=== PATIENT | female | born 1965 | race Caucasian/White ===

== ENCOUNTER 2022-10-05 11:45 | Outpatient (REF) | payer MEDICAID, SELFPAY ==
[2022-10-05 12:22] LABS: Basophils Absolute Auto 0.02 K/uL (0.00-0.30); Basophils Percent Auto 0.3 % (0.0-3.0); Eosinophils Absolute Auto 0.05 K/uL (0.00-0.50); Eosinophils Percent Auto 0.7 % (0.0-7.0); Hemoglobin* 12.2 gm/dL (12.0-16.0); Immature Granulocytes Abs Auto 0.01 K/uL (0.00-0.30); Immature Granulocytes Pct Auto 0.1 %; Mean Corpuscular HGB Conc 33 gm/dL (32-36); Mean Corpuscular Hemoglobin 34 pg (26-34); Mean Corpuscular Volume 104 fL (80-100); Monocytes Percent Auto 8.6 % (0.0-11.0); Neutrophils Percent Auto 32.3 % (42.0-72.0); Platelet Count* 187 K/uL (140-440); RDW Coefficient of Variation % 13.6 % (11.5-15.5); Red Blood Count 3.55 m/uL (4.00-5.20); White Blood Count* 7.52 K/uL (4.50-11.00)
[2022-10-05 12:23] LABS: Slide Review Reflex No
== END 2022-10-05 11:46 | disposition home or self-care (01) ==
LOC: NPINS 11:45
PROVIDERS: Visit Provider Nurse Practitioner Adult Health
DX: R53.83 Other fatigue (principal)
CPT/HCPCS: 85025

== ENCOUNTER 2022-10-22 08:13 | Outpatient (CLI) | payer MEDICAID, SELFPAY | END 2022-10-22 08:14 | disposition home or self-care (01) | LOC: AMB 10-25 06:41 | PROVIDERS: Visit Provider Internal Medicine | DX: R06.09 Other forms of dyspnea (principal); R05.9 Cough, unspecified | CPT/HCPCS: A0425; A0429 ==

== ENCOUNTER 2022-10-22 08:37 | Inpatient (IN) | payer MEDICAID, SELFPAY ==
[2022-10-22] VITALS (30 sets, daily range): BP systolic 82–130; BP diastolic 41–104; PULSE 91–111; RESP 18–31; TEMP 36.1–37.3; O2SAT 82–100; BMI 31.1
--- NOTE | 2022-10-22 09:31 | CRLHL7_ITS ---
For Patients: As a result of the Cures Act, medical imaging exams and procedure reports are released immediately into your electronic medical record. You may view this report before your referring provider. If you have questions, please contact your health care provider. INDICATION: Cough, hypoxia TECHNIQUE: Chest 1 view COMPARISON: None FINDINGS: Postop changes cervical spine extending to the upper thoracic spine. Cardiac silhouette enlarged. Retrocardiac parenchymal density. Degenerative changes of both shoulders. IMPRESSION: Retrocardiac infiltrate. Dictated by Angelito Nagel MD @ 10/22/2022 12:04:30 PM (Electronically Signed)
--- NOTE | 2022-10-22 09:37 | ED_ITS ---
HPI - General Adult General Date Seen: 10/22/22 Chief complaint: Shortness of Breath/Dyspnea Stated complaint: pneumonia Time Seen by Provider: 10/22/22 09:02 Source: family and EMS Limitations: other (baseline mental status, with superimposed confusion on patient) History of Present Illness HPI narrative: Of aspiration pneumonia in the past. Apparently she was beginning to show signs yesterday. They tried to get a chest x-ray but the patient was uncooperative/refused so no pictures were taken. This morning she was hypoxic with saturations noted to be in the 60s on room air. However there was some question about the accuracy of the measurement. Her facility called 911. She was placed on oxygen 3 L nasal cannula and he really get oxygen measurements in the 90s with a good measurement. She also seems a bit more drowsy than normal. She is having spells where she is alert and somewhat combative. At other times she seems to stare off into space. It is unclear whether or not these spells where she staring represent seizures. Subsequently patient's mother arrived. Mother reports that she does have a longstanding history of seizures since childhood. However she has not had any documented seizures for a couple of years. She is on Depakote and Keppra. As far as we know she has been receiving her meds lately. Mother noticed 1 of the spells where she seemed to be staring and hiccuping. She was able to respond to me and her mother during this spell and mother is skeptical as to whether this represents a seizure or not. It could be a partial seizure. Mother also notes that the patient has had most of her hospitalizations and medical care at the hospital in [place] over the past few years. She recently moved from [place] to [place] be closer to family but does not have md dical care here in [place] yet. Mother would, if possible, prefer the patient to be admitted at [place]. Mother is careful to confirm that the patient has advanced directives. She would not want intubation under any circumstances. She does not want CPR resuscitation. Mother would be comfortable having the patient hospitalized, treated with IV antibiotics and IV fluids. Mother is comfortable with oxygen supplementation by nasal cannula or mask. Per her written records for past medical history includes: Bronx-Gastaut syndrome Seizures Lymphedema Transverse myelitis Dysphagia Hypothyroidism spinal stenosis of cervical region history of DVT (on Eliquis) Chronic pain Obesity GERD Gout Depression Constipation Medication list: Eliquis 5 mg b.i.d. Allopurinol Bisacodyl Depakote Sprinkles 500 mg each morning Depakote Sprinkles 625 mg b.i.d. Lasix 40 mg q.a.m. Gabapentin 800 mg t.i.d. Keppra 1250 mg q.h.s. Keppra 1000 mg q.a.m. Synthroid 75 mcg Lexapro 20 mg nystatin Hydrocortisone cream Omeprazole Oxycodone 10 mg q.4 hours p.r.n. Seroquel 100 mg t.i.d. Related Data Home Medications Medication Instructions Recorded Confirmed acetaminophen 500 mg tablet 1,000 mg PO TID 10/22/22 10/22/22 allopurinol 300 mg tablet 300 mg PO DAILY 10/22/22 10/22/22 apixaban 5 mg tablet (Eliquis) 5 mg PO BID 10/22/22 10/22/22 carboxymethylcellulose sodium 0.5 1 drp ophthalmic (eye) BID-TID PRN 10/22/22 10/22/22 % eye drops (Lubricant Eye Drops) divalproex 125 mg capsule,delayed PO 10/22/22 release sprinkle divalproex 125 mg capsule,delayed 125 mg PO DAILY 10/22/22 10/22/22 release sprinkle (Depakote Sprinkles) escitalopram oxalate 20 mg tablet 20 mg PO DAILY 10/22/22 10/22/22 furosemide 40 mg tablet 40 mg PO DAILY 10/22/22 10/22/22 gabapentin 400 mg capsule 800 mg PO TID 10/22/22 10/22/22 hydrocortisone 1 % topical cream 1 applic topical BID 10/22/22 10/22/22 levetiracetam 1,000 mg tablet 1,000 mg PO BID 10/22/22 10/22/22 levetiracetam 250 mg tablet 250 mg PO DAILY 10/22/22 10/22/22 levothyroxine 75 mcg tablet 75 mcg PO DAILY 10/22/22 10/22/22 nystatin 100,000 unit/gram topical 1 applic topical 3XD 10/22/22 10/22/22 cream omeprazole 40 mg capsule,delayed 40 mg PO DAILY 10/22/22 10/22/22 release oxycodone 10 mg tablet 10 mg PO QID PRN pain 10/22/22 10/22/22 oxycodone 5 mg tablet 5 mg PO Q8H 10/22/22 10/22/22 quetiapine 100 mg tablet 100 mg PO TID 10/22/22 10/22/22 sennosides 8.6 mg tablet (senna) 17.2 mg PO HS 10/22/22 10/22/22 Allergies Allergy/AdvReac Type Severity Reaction Status Date / Time phenytoin [From Dilantin] Allergy Unknown Verified 10/22/22 09:22 pseudoephedrine Allergy Unknown Verified 10/22/22 09:22 Review of Systems Narrative: Limited [facility] Medical History (Updated 10/22/22 @ 13:22 by Nancy Hickman MD) Transverse myelitis ?G37.3 - Acute transverse myelitis in demyelinating disease of central nervous system (ICD-10) Bronx-Gastaut syndrome ?G40.812 - Horacio-Gastaut syndrome, not intractable, without status epilepticus (ICD-10) Seizure disorder ?G40.909 - Epilepsy, unspecified, not intractable, without status epilepticus (ICD-10) Congenital hypothyroidism ?E03.1 - Congenital hypothyroidism without goiter (ICD-10) 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 Alert. She is shouting at times when nurses are trying to start an IV. She follows some limited commands but is sometimes uncooperative. Breathing easily on nasal cannula.. Non toxic. HENT: Head: Atraumatic. Nose: Nose normal. Mouth/Throat: Oral mucosa is clear and moist. no trismus. Pharynx difficult to examine due to patient's limited cooperation. Visualized portions are normal.. Eyes: Conjunctivae normal. EOM normal. Pupils equal, round, and reactive to lig ht. No scleral icterus. Neck: Normal range of motion. Neck supple. No tracheal deviation present. Cardiovascular: Tachycardic, regular rhythm. No gallop. No friction rub. No murmur heard. Symmetric radial artery pulses Pulmonary/Chest: Effort normal. On nasal cannula with oxygen sat 94-95% on 3 L. No stridor. No respiratory distress. No wheezes. Questionable right basilar rales. No rhonchi . No tenderness. Abdominal: Soft. Bowel sounds normal. No distension. No mass. No tenderness. No rebound. No guarding. Musculoskeletal: RUE: Normal range of motion. No tenderness. No deformity LUE: Normal range of motion. No tenderness. No deformity RLE: Normal range of motion. Minimal edema. No tenderness. No deformity LLE: Normal range of motion. Minimal edema. No tenderness. No deformity Lymph: No cervical adenopathy. Neurological: Alert and oriented and is thought to be at her baseline per her mother. At times she has spells where she seems to stare straight ahead but does react when her mother talks to her. The spells are associated with an unusual twitching motion, almost like a subtle pickup that occurred roughly once every 2nd or 2. Between the spell she is moving all 4 extremities.Normal strength. CN II-VII intact. No sensory deficit. GCS eye subscore is 4. GCS verbal subscore is 5. GCS motor subscore is 6. Normal coordination Skin: Skin is warm and dry. No rash noted. No pallor. Normal capillary refill. Psychiatric: Limited. Const: Vital Signs, click to edit/add: Vital Signs - 24 hr 10/22/22 09:11 10/22/22 10:09 10/22/22 10:30 Temperature 97.0 F L Pulse Rate 103 H 101 H Pulse Rate [Left P ulse Oximeter] 110 H Respiratory Rate 31 H Blood Pressure Blood Pressure [Le ft Upper Arm] 96/69 Pulse Oximetry 82 L 90 97 Oxygen Delivery Me thod Room Air Oxygen Flow Rate 10/22/22 10:32 10/22/22 10:55 10/22/22 11:00 Temperature Pulse Rate 101 H 103 H 102 H Pulse Rate [Left P ulse Oximeter] Respiratory Rate Blood Pressure 82/53 L 97/58 L Blood Pressure [Le ft Upper Arm] Pulse Oximetry 95 92 95 Oxygen Delivery Me thod Oxygen Flow Rate 10/22/22 11:01 10/22/22 11:02 10/22/22 11:04 Temperature Pulse Rate 102 H 103 H Pulse Rate [Left P ulse Oximeter] Respiratory Rate Blood Pressure 105/53 L Blood Pressure [Le ft Upper Arm] Pulse Oximetry 95 93 90 Oxygen Delivery Me thod Nasal Cannula Oxygen Flow Rate 3 10/22/22 11:30 10/22/22 11:32 10/22/22 11:33 Temperature Pulse Rate 101 H 102 H 101 H Pulse Rate [Left P ulse Oximeter] Respiratory Rate Blood Pressure 102/53 L Blood Pressure [Le ft Upper Arm] Pulse Oximetry 97 94 96 Oxygen Delivery Me thod Oxygen Flow Rate 10/22/22 12:00 10/22/22 12:02 10/22/22 12:32 Temperature Pulse Rate 101 H 100 Pulse Rate [Left P ulse Oximeter] Respiratory Rate Blood Pressure 94/59 L 103/58 L Blood Pressure [Le ft Upper Arm] Pulse Oximetry 95 96 Oxygen Delivery Me thod Oxygen Flow Rate 10/22/22 12:36 10/22/22 13:00 10/22/22 13:01 Temperature Pulse Rate 104 H 102 H 102 H Pulse Rate [Left P ulse Oximeter] Respiratory Rate Blood Pressure 100/59 L Blood Pressure [Le ft Upper Arm] Pulse Oximetry 89 93 95 Oxygen Delivery Me thod Oxygen Flow Rate Course Vital Signs Vital signs: Initial Vital Signs Temperature 97.0 F L 10/22/22 09:11 Temperature Source Temporal Artery Scan 10/22/22 09:11 Pulse Rate 110 H 10/22/22 09:11 Respiratory Rate 31 H 10/22/22 09:11 Blood Pressure 96/69 10/22/22 09:11 Blood Pressure Mean 78 10/22/22 09:11 Blood Pressure Position Supine 10/22/22 09:11 Pulse Oximetry 82 L 10/22/22 09:11 Oxygen Delivery Method Room Air 10/22/22 09:11 Vital Signs Temperature 97.0 F L 10/22/22 09:11 Pulse Rate 110 H 10/22/22 09:11 Respiratory Rate 31 H 10/22/22 09:11 Blood Pressure 96/69 10/22/22 09:11 Pulse Oximetry 82 L 10/22/22 09:11 Oxygen Delivery Method Room Air 10/22/22 09:11 Temperature 97.0 F L 10/22/22 09:11 Pulse Rate 102 H 10/22/22 13:01 Respiratory Rate 31 H 10/22/22 09:11 Blood Pressure 100/59 L 10/22/22 13:01 Pulse Oximetry 95 10/22/22 13:01 Oxygen Delivery Method Nasal Cannula 10/22/22 11:04 Oxygen Flow Rate 3 10/22/22 11:04 Medical Decision Making MDM Narrative Medical decision making narrative: 57-year-old female who presents to the ER today with concern for hypoxia, difficulty breathing, with a history of aspiration pneumonias in the past. She also has unusual mental status and unusual behaviors, possible hiccups versus possible partial seizures ongoing for the past couple of days. 1. Neuro. No recent known fall or head injury. No external signs of head trauma. Patient is essentially a neurologic baseline according to her mother although at times does have unusual possible seizure-like activity versus behavioral. She does have a chronic seizure disorder and is normally managed on gabapentin, Keppra, Depakote. As far as we know she has been receiving her meds and normally. Depakote and Keppra levels are currently ordered and pending. Additional dose of IV Keppra and monitor her here in the ER to account for this morning's dose. And discussion with the patient's mother, we discussed that transfer to a hospital or neurology consultation and potential EEG monitoring may be indicated. However there are no beds available at [place] or in the [facility]. Mother really does not want the patient to be transferred to the [facility]. In fact, with the patient's advanced directives, mother would prefer to admit here and/or transfer to [place], but not to her level of care. Therefore she will be admitted to the ICU for monitoring here in the ER with plan to monitor. Blood sugar normal. Sodium normal. 2. Pulmonary. Chest x-ray does show a left retrocardiac infiltrate which would correlate with possible history of aspiration. She was hypoxic prior to arrival but is now stable on 3 L nasal cannula. Blood gas shows a chronic pCO2 elevated at 67 but normal pH suggesting no acute CO2 retention. She does not have any wheezing or bronchospasm on my exam suggest COPD. At this point I do not think she needs BiPAP. Mother confirms that she has DNI but would will be accepting for oxygen supplementation in the hospital. IV antibiotics initiated to cover for possible aspiration pneumonia. COVID, influenza, RSV PCR negative. She has recently been on Eliquis for history of DVT/PE. With a clear explanation for her hypoxia-left lower lobe pneumonia, would hold off on CT PA at this time. He 3. Id. Patient does have pneumonia. She does have leukocytosis. Concern is for possible sepsis from her aspiration pneumonia. She did have an isolated low blood pressure reading recorded here in the ER during her initial stabilization. Unclear whether this is accurate because the patient was uncooperative and blood pressure cuff was not always staying on. Of note there was significant delay while we were trying to establish IV to initiate IV antibiotics and IV fluids. Ultimately although white count elevated, blood pressure is stabilized to normal level. Lactic acid is reassuring and normal. Urine negative. No signs of skin or soft tissue infection. No abdominal tenderness to suggest intra-abdominal infection. Mental status exam is limited by her baseline mental status but mother believes she is approximately at her baseline. Low likelihood for meningitis. Will hold off on lumbar puncture. 4. Goals of care. Mother is careful to state multiple times that she does not want any mistakes about advanced directives.. She does no want are clear Whit to be intubated or have CPR. She would want supportive care. Lab Data Lab results reviewed: Yes I reviewed the patient's lab results Labs: Lab Results 10/22/22 10/22/22 10/22/22 Range/Units 10:15 11:04 12:25 WBC 13.53 H (4.50-11.00) K/uL RBC 3.25 L (4.00-5.20) m/uL Hgb 11.0 L (12.0-16.0) gm/dL Hct 35.2 (33.0-51.0) % MCV 108 H (80-100) fL MCH 34 (26-34) pg MCHC 31 L (32-36) gm/dL RDW Coeff of Mike 13.2 (11.5-15.5) % Plt Count 146 (140-440) K/uL Neut % (Auto) 76.1 H (42.0-72.0) % Lymph % (Auto) 15.6 L (20-44) % [place] % (Auto) 7.8 (0.0-11.0) % Eos % (Auto) 0.1 (0.0-7.0) % Baso % (Auto) 0.1 (0.0-3.0) % Neut # (Auto) 10.30 H (1.7-7.0) K/uL Lymph # (Auto) 2.10 (0.90-2.90) K/uL [place] # (Auto) 1.10 H (0.00-0.90) K/UL Eos # (Auto) 0.00 (0.00-0.50) K/uL Baso # (Auto) 0.00 (0.00-0.30) K/uL Abs Immat Gran (auto) 0.00 (0.00-0.30) K/uL Imm/Tot Granulo (auto) 0.3 % VBG pH 7.406 (7.32-7.43) VBG pCO2 67 H* (40-50) mmHG VBG pO2 36.0 (25-47) mmHG VBG HCO3 42 H (21-28) mmol/L Sodium 136 (135-149) mmol/L Potassium 4.2 (3.6-5.1) mmol/L Chloride 95 L (96-114) mmol/L Carbon Dioxide 39 H (20-32) mmol/L BUN 14 (7-30) mg/dL Creatinine 0.5 (0.5-1.5) mg/dL Estimated Creat Clear 95.82 Estimated GFR 108 ml/min Glucose 95 (60-115) mg/dL Lactate 1.3 (0.5-1.9) mmol/L Calcium 8.6 (8.4-10.6) mg/dL Total Bilirubin 0.3 (0.1-1.5) mg/dL Direct Bilirubin 0.1 (0.0-0.5) mg/dL AST 31 (12-35) U/L ALT 12 (4-35) U/L Alkaline Phosphatase 53 (40-150) U/L Troponin I 0.02 (0.01-0.04) ng/mL C-Reactive Protein 13.8 H (0.5-1.0) mg/dL Total Protein 6.7 (6.0-8.3) g/dL Albumin 3.4 (3.3-5.0) g/dL Procalcitonin 0.23 (<0.50) ng/mL Urine Color Yellow (Yellow) Urine Appearance Clear (Clear) Urine pH 7.5 (5.0-8.5) Ur Specific [place] 1.015 (1.000-1.030) Urine Protein Negative (Negative) Urine Glucose (UA) Negative (Negative) Urine Ketones Negative (Negative) Urine Blood Negative (Negative) Urine Nitrite Negative (Negative) Urine Bilirubin Negative (Negative) Urine Urobilinogen 0.2 (0.2-1.0) Ur Leukocyte Esterase Negative (Negative) Urine RBC 0-2 (0-2) Urine WBC 0-2 (0-5) Ur Squamous Epith Cells None (None-Few) Urine Bacteria None (None) SARS-CoV-2 (PCR) Negative SARS-CoV-2 (Negative) Influenza Type A (PCR) Negative PCR FLU A (Negative) Influenza Type B (PCR) Negative PCR FLU B (Negative) RSV (PCR) Negative PCR RSV (Negative) Lab Acknowledgement 10/22/22 Range/Units 12:40 WBC (4.50-11.00) K/uL RBC (4.00-5.20) m/uL Hgb (12.0-16.0) gm/dL Hct (33.0-51.0) % MCV (80-100) fL MCH (26-34) pg MCHC (32-36) gm/dL RDW Coeff of Mike (11.5-15.5) % Plt Count (140-440) K/uL Neut % (Auto) (42.0-72.0) % Lymph % (Auto) (20-44) % [place] % (Auto) (0.0-11.0) % Eos % (Auto) (0.0-7.0) % Baso % (Auto) (0.0-3.0) % Neut # (Auto) (1.7-7.0) K/uL Lymph # (Auto) (0.90-2.90) K/uL [place] # (Auto) (0.00-0.90) K/UL Eos # (Auto) (0.00-0.50) K/uL Baso # (Auto) (0.00-0.30) K/uL Abs Immat Gran (auto) (0.00-0.30) K/uL Imm/Tot Granulo (auto) % VBG pH (7.32-7.43) VBG pCO2 (40-50) mmHG VBG pO2 (25-47) mmHG VBG HCO3 (21-28) mmol/L Sodium (135-149) mmol/L Potassium (3.6-5.1) mmol/L Chloride (96-114) mmol/L Carbon Dioxide (20-32) mmol/L BUN (7-30) mg/dL Creatinine (0.5-1.5) mg/dL Estimated Creat Clear Estimated GFR ml/min Glucose (60-115) mg/dL Lactate (0.5-1.9) mmol/L Calcium (8.4-10.6) mg/dL Total Bilirubin (0.1-1.5) mg/dL Direct Bilirubin (0.0-0.5) mg/dL AST (12-35) U/L ALT (4-35) U/L Alkaline Phosphatase (40-150) U/L Troponin I (0.01-0.04) ng/mL C-Reactive Protein (0.5-1.0) mg/dL Total Protein (6.0-8.3) g/dL Albumin (3.3-5.0) g/dL Procalcitonin (<0.50) ng/mL Urine Color (Yellow) Urine Appearance (Clear) Urine pH (5.0-8.5) Ur Specific [place] (1.000-1.030) Urine Protein (Negative) Urine Glucose (UA) (Negative) Urine Ketones (Negative) Urine Blood (Negative) Urine Nitrite (Negative) Urine Bilirubin (Negative) Urine Urobilinogen (0.2-1.0) Ur Leukocyte Esterase (Negative) Urine RBC (0-2) Urine WBC (0-5) Ur Squamous Epith Cells (None-Few) Urine Bacteria (None) SARS-CoV-2 (PCR) (Negative) Influenza Type A (PCR) (Negative) Influenza Type B (PCR) (Negative) RSV (PCR) (Negative) Lab Acknowledgement Test Added Imaging Data Chest x-ray: Attestation: I have reviewed the pertinent imaging results. Radiologist's impression: IMPRESSION: Retrocardiac infiltrate. ECG Data Attestation: I personally reviewed and interpreted this ECG as follows: Interpretation: EKG 11:53 a.m. Normal sinus rhythm 100 beats per minute [place] interval 162 QRS axis normal. No pathologic Q-waves. ST segment/T-wave: Nonspecific flattening V1, V2, V5, V6. No ST segment el evation or depression. QTC 399 Discharge Plan Discharge Clinical Impression: Acute alteration in mental status, Community acquired pneumonia Patient Disposition: Admitted As Observation
--- NOTE | 2022-10-22 10:24 | ED.NURSE ---
started #22 jelco as a saline lock in the left hand. able to draw the labs with present in the room. patient pulls at things so wrapped with kerlex. Mother is present in the room.
[2022-10-22 10:32] LABS: Basophils Percent Auto 0.1 % (0.0-3.0); Eosinophils Percent Auto 0.1 % (0.0-7.0); Hematocrit 35.2 % (33.0-51.0); Immature Granulocytes Pct Auto 0.3 %; Lymphocytes Percent Auto 15.6 % (20-44); Mean Corpuscular HGB Conc 31 gm/dL (32-36); Mean Corpuscular Hemoglobin 34 pg (26-34); Mean Corpuscular Volume 108 fL (80-100); Monocytes Percent Auto 7.8 % (0.0-11.0); Neutrophils Percent Auto 76.1 % (42.0-72.0); Platelet Count* 146 K/uL (140-440); RDW Coefficient of Variation % 13.2 % (11.5-15.5); Red Blood Count 3.25 m/uL (4.00-5.20); White Blood Count* 13.53 K/uL (4.50-11.00)
[2022-10-22 10:35] LABS: Lactate* 1.3 mmol/L (0.5-1.9)
[2022-10-22] MEDS: 0.9 % SODIUM CHLORIDE 1000 ml 1,000 ML IV ×3 (10:36→15:32)
[2022-10-22 10:37] LABS: Slide Review Reflex No
[2022-10-22] MEDS: PIPERACILLIN/TAZOBACTAM 4.5 GM in 0.9 % SODIUM CHLORIDE Mini-bag 100 ML IVPB (10:43)
[2022-10-22 10:52] LABS: Chloride* 95 mmol/L (96-114); Potassium* 4.2 mmol/L (3.6-5.1); Sodium* 136 mmol/L (135-149)
[2022-10-22 10:55] LABS: Blood Urea Nitrogen* 14 mg/dL (7-30); Carbon Dioxide* 39 mmol/L (20-32); Creatinine* 0.5 mg/dL (0.5-1.5); Est. Creatinine Clearance* 95.82; Estimated Glomerular Filt Rate 108 ml/min; Glucose* 95 mg/dL (60-115)
[2022-10-22 10:56] LABS: Calcium* 8.6 mg/dL (8.4-10.6)
[2022-10-22 11:16] LABS: Troponin I* 0.02 ng/mL (0.01-0.04)
[2022-10-22 11:48] LABS: PCR FLU A Negative PCR FLU A (Negative); PCR FLU B Negative PCR FLU B (Negative); PCR RSV Negative PCR RSV (Negative)
[2022-10-22 11:52] LABS: SARS PCR* Negative SARS-CoV-2 (Negative)
[2022-10-22 12:37] LABS: Appearance Urine Clear (Clear); Bilirubin Urine Negative (Negative); Blood Urine Negative (Negative); Color Urine Yellow (Yellow); Glucose Urine Negative (Negative); Ketones Urine Negative (Negative); Leukocyte Esterase Urine Negative (Negative); Nitrite Urine Negative (Negative); Protein Urine Negative (Negative); Specific Gravity Urine 1.015 (1.000-1.030); Urobilinogen Urine 0.2 (0.2-1.0); pH Urine 7.5 (5.0-8.5)
[2022-10-22 12:50] LABS: HCO3 VBG 42 mmol/L (21-28); pH VBG 7.406 (7.32-7.43)
[2022-10-22 12:51] LABS: PCO2 VBG 67 mmHG (40-50)
[2022-10-22 12:56] LABS: Albumin* 3.4 g/dL (3.3-5.0)
[2022-10-22 12:59] LABS: Bilirubin Direct* 0.1 mg/dL (0.0-0.5); Bilirubin Total* 0.3 mg/dL (0.1-1.5)
[2022-10-22 13:00] LABS: Alanine Aminotransferase* 12 U/L (4-35); Alkaline Phosphatase* 53 U/L (40-150); Aspartate Amino Transferase* 31 U/L (12-35); Total Protein* 6.7 g/dL (6.0-8.3)
[2022-10-22 13:05] LABS: RBC Urine 0-2 (0-2); WBC Urine 0-2 (0-5)
--- NOTE | 2022-10-22 13:12 | P.IMHP_ITS ---
Hospitalist- H&P: HPI History of Present Illness Date Seen: 10/23/22 Chief complaint: pneumonia Narrative: ADMISSION HISTORY AND PHYSICAL - HOSPITALIST Chief Complaint: Lethargic, hiccup like seizures? , pneumonia, hypoxic HPI: 57-year-old longstanding developmental delay presents to our ER from her senior living. Her senior livingdirector of home care hospice noted hypoxia and altered mental status and called EMS. She has been sick for a few days; coughing/eating less. She has been less interactive. She is having some jerking movements this am and mom was concerned it could be a partial seizure. She was, by report, hypoxic this am. She has got her scheduled meds up thru last night. . In our ER she was noted to be hypotensive, tachycardic, tachypneic and requiring oxygen at 3 L to keep her sats above 90%. She has a chronic dysphagia that requires thickened and pureed meals. She has a history of aspiration pneumonia. Rads read her single-view chest x-ray as a retrocardiac infiltrate. She was started on Zosyn, vancomycin ER COURSE: Fluids, IV antibiotics on nasal cannula O2 CODE STATUS: DNR/DNI EMERGENCY CONTACT PLAN: Her mother, Joann I've updated the PFSH, medications and allergies in the [facility] tabs. INVESTIGATIONS: LABS/MICRO/ECG/IMAGING White count 13.5, 76% neutrophils Hemoglobin 11.0 Platelet count 146 PH 7.4, CO2 67, bicarb 42 Normal sodium, normal potassium. Normal renal function. Normal glucose. Carbon dioxide 39. Lactate 1.3 LFTs within normal limits Pending CRP and procalcitonin Pending valproic acid and Keppra levels Negative quad respiratory screen One-view chest in the ED Postop changes cervical spine extending to the upper thoracic spine. Cardiac silhouette enlarged. Retrocardiac parenchymal density. Degenerative changes of both shoulders. IMPRESSION: Retrocardiac infiltrate. One blood culture pending EKG shows normal sinus rhythm with a nonspecific T-wave abnormality. Heart rate 100. REVIEW OF SYSTEMS: 12-point ROS completed with patient and negative unless otherwise stated in HPI or below. PHYSICAL EXAM: CODE STATUS: DNR/DNI. Mother, Joann, is her guardian. Is very clear regarding her care goals for her daughter Whit. There will be no heroic efforts. Antibiotics, fluids, adjustment medications as necessary are okay. CONSTITUTIONAL: Agitated. Is one-word sentences. Cries out with nursing interventions. VITAL SIGNS: see record. HEENT: Normocephalic, atraumatic. PERRL, EOMI, conjunctivae pink, no scleral icterus. Ears and nose externally normal. Pharynx normal. NECK: No JVD. No carotid bruit, no thyromegaly, no adenopathy. CHEST: No wheezing. HEART: S1 and S2 normal. No harsh murmurs. Edema MUSCULOSKELETAL: No gross joint deformity or swelling. NEURO: Cranial nerves intact. Grossly intact. No asymmetric findings. SKIN: No rashes, petechiae, concerning changes PSYCHIATRIC: Agitated. 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, not intractable, without status epilepticus (ICD-10) Seizure disorder ?G40.909 - Epilepsy, unspecified, not intractable, without status epilepticus (ICD-10) Congenital hypothyroidism ?E03.1 - Congenital hypothyroidism without goiter (ICD-10) Developmental delay with autism spectrum disorder and gait instability ?R62.50 - Unspecified lack of expected normal physiological development in childhood (ICD-10) ?F84.0 - Autistic disorder (ICD-10) ?R26.81 - Unsteadiness on feet (ICD-10) Surgical History (Updated 10/22/22 @ 14:42 by Nancy Hickman MD) Status post tracheostomy ?Z93.0 - Tracheostomy status (ICD-10) H/O spinal fusion ?Z98.1 - Arthrodesis status (ICD-10) Social History (Updated 10/22/22 @ 14:28 by Nancy Hickman MD) Narrative: Has lived in group homes since graduation from high school. Mother Joann, is very involved. Currently she lives at [facility]. Recently had lived at the [facility]. No smoking. Not sexually active. No alcohol. Loves Kahlil and all cartoons. What is your current living situation?: I presently have a place to live Problems where you live: unable to answer Problems where you live details: n/a In the past 12 months, utilities in danger of being shut off: unable to answer In the past 12 mos, have been you worried that your food would run out before you had money to buy more?: unable to answer In the past 12 mos, the food you bought just didn't last and you didn't have money to buy more?: unable to answer Highest level of school completed/degree received: high school graduate Smoking Status: Never smoker How often do you have a drink containing alcohol: never AUDIT-C Alcohol total score: 0 Non-prescribed substance use: denies use Caffeine: No How often does anyone, including family, friends and others, physically hurt you : unable to answer How often does anyone, including family, friends and others, insult or talk down to you: unable to answer How often does anyone, including family, friends and others, threaten you with harm: unable to answer How often does anyone, including family, friends and others, scream or curse at you: unable to answer Do you think of yourself as: don't know Gender Identity: female service: No Meds Home Medications and Allergies Home Medications Medication Instructions Recorded Confirmed Type acetaminophen 500 mg tablet 1,000 mg PO TID 10/22/22 10/22/22 History allopurinol 300 mg tablet 300 mg PO DAILY 10/22/22 10/22/22 History apixaban 5 mg tablet (Eliquis) 5 mg PO BID 10/22/22 10/22/22 History bisacodyl 10 mg rectal suppository 10 mg LA BID PRN 10/22/22 10/22/22 History carboxymethylcellulose sodium 0.5 1 drp ophthalmic (eye) TID 10/22/22 10/22/22 History % eye drops (Lubricant Eye Drops) divalproex 125 mg capsule,delayed 500 - 625 mg PO TID 10/22/22 10/22/22 History release sprinkle escitalopram oxalate 20 mg tablet 20 mg PO DAILY 10/22/22 10/22/22 History furosemide 40 mg tablet 40 mg PO DAILY 10/22/22 10/22/22 History gabapentin 400 mg capsule 800 mg PO TID 10/22/22 10/22/22 History hydrocortisone 1 % topical cream 1 applic topical BID PRN 10/22/22 10/22/22 History levetiracetam 1,000 mg tablet 1,000 mg PO BID 10/22/22 10/22/22 History levetiracetam 250 mg tablet 250 mg PO HS 10/22/22 10/22/22 History levothyroxine 75 mcg tablet 75 mcg PO DAILY 10/22/22 10/22/22 History nystatin 100,000 unit/gram topical 1 applic topical BID 10/22/22 10/22/22 History cream omeprazole 40 mg capsule,delayed 40 mg PO DAILY 10/22/22 10/22/22 History release oxycodone 10 mg tablet 10 mg PO TID pain 10/22/22 10/22/22 History quetiapine 100 mg tablet 100 mg PO TID 10/22/22 10/22/22 History sennosides 8.6 mg tablet (senna) 8.6 - 17.2 mg PO BID 10/22/22 10/22/22 History Allergies Allergy/AdvReac Type Severity Reaction Status Date / Time phenytoin [From Dilantin] Allergy Unknown Verified 10/22/22 09:22 pseudoephedrine Allergy Unknown Verified 10/22/22 09:22 Exam Const: Vital Signs, click to edit/add: Vital Signs - 24 hr 10/22/22 09:11 10/22/22 10:09 10/22/22 10:30 Temperature 97.0 F L Pulse Rate 103 H 101 H Pulse Rate [Left P ulse Oximeter] 110 H Respiratory Rate 31 H Blood Pressure Blood Pressure [Le ft Upper Arm] 96/69 Pulse Oximetry 82 L 90 97 Oxygen Delivery Me thod Room Air Oxygen Flow Rate 10/22/22 10:32 10/22/22 10:55 10/22/22 11:00 Temperature Pulse Rate 101 H 103 H 102 H Pulse Rate [Left P ulse Oximeter] Respiratory Rate Blood Pressure 82/53 L 97/58 L Blood Pressure [Le ft Upper Arm] Pulse Oximetry 95 92 95 Oxygen Delivery Me thod Oxygen Flow Rate 10/22/22 11:01 10/22/22 11:02 10/22/22 11:04 Temperature Pulse Rate 102 H 103 H Pulse Rate [Left P ulse Oximeter] Respiratory Rate Blood Pressure 105/53 L Blood Pressure [Le ft Upper Arm] Pulse Oximetry 95 93 90 Oxygen Delivery Me thod Nasal Cannula Oxygen Flow Rate 3 10/22/22 11:30 10/22/22 11:32 10/22/22 11:33 Temperature Pulse Rate 101 H 102 H 101 H Pulse Rate [Left P ulse Oximeter] Respiratory Rate Blood Pressure 102/53 L Blood Pressure [Le ft Upper Arm] Pulse Oximetry 97 94 96 Oxygen Delivery Me thod Oxygen Flow Rate 10/22/22 12:00 10/22/22 12:02 10/22/22 12:32 Temperature Pulse Rate 101 H 100 Pulse Rate [Left P ulse Oximeter] Respiratory Rate Blood Pressure 94/59 L 103/58 L Blood Pressure [Le ft Upper Arm] Pulse Oximetry 95 96 Oxygen Delivery Me thod Oxygen Flow Rate 10/22/22 12:36 Temperature Pulse Rate 104 H Pulse Rate [Left P ulse Oximeter] Respiratory Rate Blood Pressure Blood Pressure [Le ft Upper Arm] Pulse Oximetry 89 Oxygen Delivery Me thod Oxygen Flow Rate Hospitalist - H&P: Result Labs Labs: Short CBC 10/22/22 Range/Units 10:15 WBC 13.53 H (4.50-11.00) K/uL Hgb 11.0 L (12.0-16.0) gm/dL Hct 35.2 (33.0-51.0) % Plt Count 146 (140-440) K/uL BMP 10/22/22 10:15 Sodium 136 Potassium 4.2 Chloride 95 L Carbon Dioxide 39 H BUN 14 Creatinine 0.5 Glucose 95 Calcium 8.6 Cardiac Enzymes 10/22/22 Range/Units 10:15 Troponin I 0.02 (0.01-0.04) ng/mL Liver Function 10/22/22 Range/Units 10:15 Total Bilirubin 0.3 (0.1-1.5) mg/dL Direct Bilirubin 0.1 (0.0-0.5) mg/dL AST 31 (12-35) U/L ALT 12 (4-35) U/L Alkaline Phosphatase 53 (40-150) U/L Albumin 3.4 (3.3-5.0) g/dL Urine 10/22/22 Range/Units 12:25 Urine Color Yellow (Yellow) Urine Appearance Clear (Clear) Urine pH 7.5 (5.0-8.5) Ur Specific [place]comb 1.015 (1.000-1.030) Urine Protein Negative (Negative) Urine Glucose (UA) Negative (Negative) Assessment and Plan Assessment and plan (1) Acute respiratory failure with hypoxia and hypercapnia: Problem comment: From aspiration pneumonia most likely. Zosyn and vancomycin in the emergency room. I will continue Zosyn and start azithromycin. I have not ordered steroids at this point. Good pulmonary hygiene, oxygen to support and fluid resuscitation all in progress. Blood gas 7.406. PCO2 67, elevated. Bicarb 42. CRP is 13.8. Procalcitonin is 0.23. Status: Acute (2) Aspiration pneumonia: Problem comment: Hypercapnic, hypoxic. Retrocardiac infiltrate. Will follow clinical response to therapies and markers/imaging. Status: Acute (3) Hypercarbia: Problem comment: will not tolerate bipap; on high flow Status: Acute (4) Seizure disorder: Problem comment: Continue dosing with her home regimen - on/off able to cooperate with PO meds. keppra and valproic acid IV if needed. Status: Acute (5) Fluid overload, unspecified: Status: Acute (6) Acute alteration in mental status: Problem comment: Likely related to underlying comorbidities and hypoxia and sepsis Status: Acute (7) Developmental delay with autism spectrum disorder and gait instability: Problem comment: Noted Status: Acute (8) Horacio-Gastaut syndrome: Problem comment: Noted. Potentially having seizures, absent. We gave the Keppra IV in the ED. I have ordered her Depakote and Keppra per usual dosing regimen. May need bedside neurology with [place] if we feel she is still having seizures later today. Status: Acute (9) Congenital hypothyroidism: Problem comment: Continu dosing with her Synthroid regimen. Status: Acute (10) Chronic pain: Problem comment: Patient takes 10 mg of oxycodone t.i.d. with p.r.n. 5 mg dosing. The mother was telling me that she has done better when on transdermal fentanyl and she was in discussions with this with the new [facility] provider. As she aspirated, likely, this time I will place the fentanyl Duragesic. Status: Acute (11) Opioid dependence: Problem comment: Chronic oxycodone dosing. Both scheduled and p.r.n.. I am holding the scheduled dosing as were starting a fentanyl Duragesic. Status: Acute (12) Cervical radiculopathy due to degenerative joint disease of spine: Problem comment: Source of her chronic pain. She had a large fusion of her cervical spine in 2018. Status: Acute (13) Morbid obesity: Status: Acute
[2022-10-22 13:17] LABS: C Reactive Protein* 13.8 mg/dL (0.5-1.0); Procalcitonin* 0.23 ng/mL (<0.50)
[2022-10-22] MEDS: 0.9 % SODIUM CHLORIDE 1000 ml 1,000 ML 250 ML IV (15:30)
[2022-10-22] MEDS: ACETAMINOPHEN 500 MG TABLET 1000 MG PO ×2 (16:30→21:36)
[2022-10-22] MEDS: PANTOPRAZOLE SODIUM 40 MG INJ IVP (16:30)
[2022-10-22] MEDS: GABAPENTIN 100 MG CAPSULE 200 MG PO (16:31)
[2022-10-22] MEDS: GABAPENTIN 600 MG TABLET PO (16:31)
[2022-10-22] MEDS: fentaNYL 25 MCG/HR PATCH 1 PATCH TRANSDERMA (16:31)
[2022-10-22] MEDS: DIVALPROEX SODIUM 125 MG CAP.DR.SPR 625 MG PO ×2 (16:32→21:33)
[2022-10-22] MEDS: AZITHROMYCIN 500 MG in 0.9 % SODIUM CHLORIDE 250 ml 250 ML 255 MG IVPB (16:32)
[2022-10-22] MEDS: QUETIAPINE 100 MG TABLET PO ×2 (16:33→21:35)
[2022-10-22] MEDS: IPRAT-ALBUT 0.5-2.5 MG/3 ML NEB 1 NEB IH ×2 (16:56→21:34)
--- NOTE | 2022-10-22 18:27 | PC.NURSE ---
End of shift-- Pt is pleasant and primarily cooperative. Oriented to person, birthday, age and day of week but was unsure of her location or the year. Pt has a baseline developmental delay and her speech is limited and occasionally incoherent. Pt yells to communicate as per her baseline. VSS, though tachycardic with HR in 110s and highest temp this shift is 99.1F. SpO2 maintained >90% on 1-2L per n.c. Crackles auscultated in bilateral bases of lungs, though pt was unable to cooperate fully with assessment. Moist, non-productive cough noted. BS+ x4 quadrants and she ate roughly 25% of lunch and dinner. Pt has a pureed diet with honey thick liquids and requires adaptive equipment in order to feed herself. She was assisted to eat this evening. Telemetry shows sinus tachycardia. Pt was incontinent of urine once this shift and turned and repositioned every 2 hours. 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 Mild redness and irritation beneath breasts. Skin otherwise intact. Mother was at bedside this afternoon and appears loving and supportive. Report to oncoming shift.
[2022-10-22] MEDS: 5 % DEX/0.9 SOD CHL+KCL 20 mEq 1,000 ML 125 ML IV (20:46)
[2022-10-22] MEDS: levETIRAcetam 500 MG TABLET 1250 MG PO (21:35)
[2022-10-22] MEDS: OXYCODONE 5 MG TABLET PO (21:35)
[2022-10-22] MEDS: SENNOSIDES 1 TAB TABLET 2 TAB PO (21:36)
[2022-10-22] MEDS: GABAPENTIN 100 MG CAPSULE 800 MG PO (21:37)
[2022-10-22] MEDS: APIXABAN 5 MG TABLET PO (21:37)
[2022-10-22] MEDS: NYSTATIN CREAM 30 GM 1 APPLIC TOPICAL (21:48)
[2022-10-22] MEDS: HYDROCORTISONE 1 % CREAM 1 APPLIC TOPICAL (21:48)
--- NOTE | 2022-10-22 21:54 | PC.NURSE ---
Patient's gabapentin changed from one 600mg tablet + 2 100mg capsules to 8 100 mg capsules as patient cannot swallow pills and tablet can not be crushed. Okayed with MD/remote pharmacy.
[2022-10-23] VITALS (28 sets, daily range): BP systolic 81–146; BP diastolic 50–95; PULSE 82–101; RESP 16–20; TEMP 35.9–36.6; O2SAT 2–100; BMI 35.6
[2022-10-23] MEDS: OXYCODONE 5 MG TABLET PO ×3 (04:12→20:06)
[2022-10-23] MEDS: 5 % DEX/0.9 SOD CHL+KCL 20 mEq 1,000 ML 125 ML IV ×2 (04:16→19:54)
[2022-10-23] MEDS: IPRAT-ALBUT 0.5-2.5 MG/3 ML NEB 1 NEB IH ×4 (04:16→20:37)
[2022-10-23 06:21] LABS: HCO3 VBG 36 mmol/L (21-28); Ionized Calcium* 1.18 mmol/L (1.11-1.30); PO2 VBG 87.1 mmHG (25-47)
[2022-10-23 06:25] LABS: PCO2 VBG 73 mmHG (40-50)
[2022-10-23 06:29] LABS: Basophils Percent Auto 0.1 % (0.0-3.0); Eosinophils Percent Auto 0.3 % (0.0-7.0); Hematocrit 30.5 % (33.0-51.0); Hemoglobin* 9.5 gm/dL (12.0-16.0); Immature Granulocytes Pct Auto 0.2 %; Lymphocytes Percent Auto 36.1 % (20-44); Mean Corpuscular HGB Conc 31 gm/dL (32-36); Mean Corpuscular Hemoglobin 35 pg (26-34); Mean Corpuscular Volume 111 fL (80-100); Monocytes Percent Auto 6.2 % (0.0-11.0); Neutrophils Absolute Auto 6.14 K/uL (1.7-7.0); Neutrophils Percent Auto 57.1 % (42.0-72.0); Platelet Count* 142 K/uL (140-440); RDW Coefficient of Variation % 13.4 % (11.5-15.5); Red Blood Count 2.75 m/uL (4.00-5.20); White Blood Count* 10.75 K/uL (4.50-11.00)
[2022-10-23 06:30] LABS: Basophils Absolute Auto 0.01 K/uL (0.00-0.30); Eosinophils Absolute Auto 0.03 K/uL (0.00-0.50); Immature Granulocytes Abs Auto 0.02 K/uL (0.00-0.30); Lymphocytes Absolute Auto 3.88 K/uL (0.90-2.90)
[2022-10-23 06:31] LABS: Slide Review Reflex No
--- NOTE | 2022-10-23 06:39 | P.CCN_ITS ---
Assessment and Plan Assessment and plan (1) Hypercarbia: Status: Acute Plan Wilian Urrutia Hospitalist Cross Cover Note eHospitalist was contacted by nursing staff with concern of elevated pCO2. Notified by RN of elevated pCO2, today = 73, yesterday = 67. Patient also has associated mild acidosis, pH 7.3. BMP is pending. Would recommend utilization of BiPAP for improved ventilation. Order placed. Thank you for including Wilian Urrutia [facility] in this patient's care. This service is available for further assistance as requested by your care team by calling [phone]. Dictation Comment: This document was transcribed utilizing [id number] ([employer] software). Occasional mistranslation may occur.
[2022-10-23 06:41] LABS: Chloride* 104 mmol/L (96-114)
[2022-10-23 06:42] LABS: Albumin* 2.8 g/dL (3.3-5.0); Sodium* 140 mmol/L (135-149)
[2022-10-23 06:45] LABS: Alkaline Phosphatase* 47 U/L (40-150); Aspartate Amino Transferase* 17 U/L (12-35); Bilirubin Total* 0.2 mg/dL (0.1-1.5); Blood Urea Nitrogen* 10 mg/dL (7-30); Carbon Dioxide* 38 mmol/L (20-32); Creatinine* 0.5 mg/dL (0.5-1.5); Est. Creatinine Clearance* 95.82; Estimated Glomerular Filt Rate 108 ml/min; Lipase* 29 U/L (23-300); Total Protein* 5.8 g/dL (6.0-8.3)
[2022-10-23 06:46] LABS: Alanine Aminotransferase* 9 U/L (4-35); Calcium* 7.9 mg/dL (8.4-10.6); Glucose* 105 mg/dL (60-115); Magnesium* 1.9 mg/dL (1.5-2.6)
[2022-10-23 07:02] LABS: Procalcitonin* 0.19 ng/mL (<0.50)
[2022-10-23 07:05] LABS: C Reactive Protein* 16.7 mg/dL (0.5-1.0); NT Pro B Type NatriureticPept* 1200 pg/mL
--- NOTE | 2022-10-23 07:24 | PC.NURSE ---
Shift note: O2 sats 88-92% on 1-1.5L NC. Low urine output, bladder scan shown <150ml. Pt is afebrile, c/o pain ow and ouch she is able to point location of pain. RN treated per eMAR with relief per visual appearance of pt.
--- NOTE | 2022-10-23 07:30 | CRLHL7_ITS ---
For Patients: As a result of the Century Cures Act, medical imaging exams and procedure reports are released immediately into your electronic medical record. You may view this report before your referring provider. If you have questions, please contact your health care provider. INDICATION: Follow-up infiltrate TECHNIQUE: Chest 1 view COMPARISON: 10/22/2022 FINDINGS: Cardiac silhouette enlarged. Spinal fusion. Low lung volumes. Retrocardiac density. Fullness of the interstitium bilaterally. IMPRESSION: Retrocardiac atelectasis or infiltrate. Fullness of the interstitial markings suggesting fluid overload. Dictated by Angelito Nagel MD @ 10/23/2022 8:42:49 AM (Electronically Signed)
[2022-10-23] MEDS: 0.9 % SODIUM CHLORIDE 1000 ml 1,000 ML 6000 ML IV (07:45)
[2022-10-23] MEDS: DIVALPROEX SODIUM 125 MG CAP.DR.SPR 500 MG PO (08:55)
[2022-10-23] MEDS: PIPERACILLIN/TAZOBACTAM 3.375 GM in 0.9 % SODIUM CHLORIDE Mini-bag 100 ML IVPB ×3 (08:55→20:05)
[2022-10-23] MEDS: levETIRAcetam 500 MG TABLET 1000 MG PO (10:00)
[2022-10-23] MEDS: SODIUM CHLORIDE 0.9 % (FLUSH) 10 ML SYRINGE 5 ML IVF (10:13)
[2022-10-23] MEDS: diazePAM 5 MG/ML inj IV (10:13)
[2022-10-23] MEDS: FUROSEMIDE 10 MG/ML inj 40 MG IVP (10:49)
[2022-10-23 11:12] LABS: HCO3 VBG 34 mmol/L (21-28); Lactate* 0.5 mmol/L (0.5-1.9); PO2 VBG 40.3 mmHG (25-47)
[2022-10-23 11:14] LABS: PCO2 VBG 70 mmHG (40-50)
--- NOTE | 2022-10-23 11:22 | P.IMPN_ITS ---
Progress Note: A&P Assessment and plan (1) Aspiration pneumonia: Problem details: Hypercapnic, hypoxic. Retrocardiac infiltrate. Will follow clinical response to therapies and markers/imaging. Status: Acute (2) Hypercarbia: Problem details: will not tolerate bipap; on high flow. trend gas, co2 retention. Status: Acute (3) Opioid dependence: Problem details: fentanyl duragesic started 10/22 prn oxy. reduced dose to 2.5-5. avoid if possible; narcan x 1 (0.2mg IV) given am of 10/23 i wonder if pain in gumline is actually more the source than the chronic neck pain. Status: Acute (4) Chronic pain: Problem details: Patient takes 10 mg of oxycodone t.i.d. with p.r.n. 5 mg dosing. The mother was telling me that she has done better when on transdermal fentanyl and she was in discussions with this with the new [facility] provider fentanyl duragesic started on 10/22/22 Status: Acute (5) Cervical radiculopathy due to degenerative joint disease of spine: Problem details: Source of her chronic pain. She had a large fusion of her cervical spine in 2018. Status: Acute (6) [place] syndrome: Problem details: Noted. Potentially having seizures, absent/partial complex. We gave the Keppra IV in the ED. I have ordered her Depakote and Keppra per usual dosing regimen. May need bedside neurology with [place] if we feel she is still having seizures later today. I've substituted IV doses when not awake enough to take oral. holding evening dose of keppra on 10/23 given random level so high upon presentation yesterday (>80) in the ED on 10/22 Status: Acute (7) Acute respiratory failure with hypoxia and hypercapnia: Problem details: From aspiration pneumonia most likely. Zosyn and vancomycin in the emergency room - Zosyn and start azithromycin on the floor. trend gas, hypercapnia, respiratory effort, underlying seizure disorder Status: Acute (8) Seizure disorder: Problem details: Continue dosing with her home regimen - on/off able to cooperate with PO meds. keppra and valproic acid IV if needed. Status: Acute (9) Developmental delay with autism spectrum disorder and gait instability: Problem details: Noted Status: Acute (10) Congenital hypothyroidism: Problem details: Continu dosing with her Synthroid regimen. Status: Acute Subjective Date Seen: 10/23/22 Interval history: Daily Progress Note - Hospital #: 2 CC: Aspiration pneumonia, acute respiratory failure, chronic seizure disorder, developmental delay OVERNIGHT UPDATES FROM STAFF & MED, LAB, IMAGING UPDATES When I arrived this morning she was more sedated and was having trouble even waking and following any direction. She had received 10 mg of oxycodone on top of the fentanyl patch that had been started the day prior. I felt that her morning CO2 retention and drop in her pH and her clinical status was consistent with too much opioid. We gave her 1 dose of IV Narcan, 0.2 mg, and this helped wake her up and she became more responsive and was able to give more effort in her respiratory status. Portable chest x-ray showed that she was in some fluid overload and had a stable retrocardiac pneumonia and effusion. Zosyn and vancomycin were administered in the ER yesterday prior to arrival on the floor. I had intended to continue the Zosyn however this was noted at 0700 this morning, 10/23/2022 that no doses had been ordered. She did receive 1 dose of Izithromycn. Zosyn was ordered and administered before 8 this morning. Chest x-ray IMPRESSION: Retrocardiac atelectasis or infiltrate. Fullness of the interstitial markings suggesting fluid overload. White blood cell count is down trending Hemoglobin is down trending, slightly. Hemoglobin today 9.5 Platelet count 142 PH 7.3, pCO2 70. stared on high-flow nasal cannula oxygen. Electrolytes are reassuring as is renal status. Lactate is normal. CRP is up trending 13.8-16.7 Procalcitonin is reassuring. Objective: Her wakefulness has vacillated today. At 1 point our care team felt she was having a partial complex seizure with her eyes rolling in the back of her head and she was less responsive. She did receive IV Valium for this. She became more alert both after IV Narcan and the IV Valium and was more her normal personality. Vitals: see above Lungs: Shallow inspirations, difficult to auscultate at the bases. Cardiac: S1S2. Disposition/Potential discharge - Likely to return to previous living situation. Total time is 35 minutes with greater than 50% spent in counseling and coordinat ion of care. Exam Const: Vital Signs, click to edit/add: Vital Signs - 24 hr 10/22/22 11:30 10/22/22 11:32 10/22/22 11:33 Temperature Pulse Rate 101 H 102 H 101 H Pulse Rate [Right Pulse Oximeter] Respiratory Rate Blood Pressure 102/53 L Blood Pressure [Ri ght Arm] Pulse Oximetry 97 94 96 Oxygen Delivery Me thod Oxygen Flow Rate Fraction of Inspir ed Oxygen 10/22/22 12:00 10/22/22 12:02 10/22/22 12:32 Temperature Pulse Rate 101 H 100 Pulse Rate [Right Pulse Oximeter] Respiratory Rate Blood Pressure 94/59 L 103/58 L Blood Pressure [Ri ght Arm] Pulse Oximetry 95 96 Oxygen Delivery Me thod Oxygen Flow Rate Fraction of Inspir ed Oxygen 10/22/22 12:36 10/22/22 13:00 10/22/22 13:01 Temperature Pulse Rate 104 H 102 H 102 H Pulse Rate [Right Pulse Oximeter] Respiratory Rate Blood Pressure 100/59 L Blood Pressure [Ri ght Arm] Pulse Oximetry 89 93 95 Oxygen Delivery Me thod Oxygen Flow Rate Fraction of Inspir ed Oxygen 10/22/22 13:02 10/22/22 13:30 10/22/22 13:32 Temperature Pulse Rate 102 H 101 H 101 H Pulse Rate [Right Pulse Oximeter] Respiratory Rate Blood Pressure 95/66 Blood Pressure [Ri ght Arm] Pulse Oximetry 94 95 100 Oxygen Delivery Me thod Oxygen Flow Rate Fraction of Inspir ed Oxygen 10/22/22 13:53 10/22/22 13:53 10/22/22 13:53 Temperature 98.2 F Pulse Rate Pulse Rate [Right Pulse Oximeter] Respiratory Rate 18 18 Blood Pressure Blood Pressure [Ri ght Arm] 129/82 Pulse Oximetry 96 96 96 Oxygen Delivery Me thod Nasal Cannula Nasal Cannula Oxygen Flow Rate 3 3 Fraction of Inspir ed Oxygen 10/22/22 13:58 10/22/22 15:00 10/22/22 15:00 Temperature 98.2 F 99.1 F Pulse Rate Pulse Rate [Right Pulse Oximeter] 100 Respiratory Rate 18 20 18 Blood Pressure Blood Pressure [Ri ght Arm] 129/82 130/104 H Pulse Oximetry 96 90 92 Oxygen Delivery Me thod Nasal Cannula Nasal Cannula Nasal Cannula Oxygen Flow Rate 3 1 1 Fraction of Inspir ed Oxygen 10/22/22 15:00 10/22/22 15:26 10/22/22 17:21 Temperature 97.5 F L Pulse Rate 101 H Pulse Rate [Right Pulse Oximeter] 111 H 111 H Respiratory Rate 18 18 Blood Pressure Blood Pressure [Ri ght Arm] 116/41 L Pulse Oximetry 92 Oxygen Delivery Me thod Nasal Cannula Oxygen Flow Rate 1 Fraction of Inspir ed Oxygen 10/22/22 19:00 10/22/22 19:00 10/22/22 20:00 Temperature 97.7 F Pulse Rate 103 H Pulse Rate [Right Pulse Oximeter] 103 H 103 H Respiratory Rate 18 18 Blood Pressure Blood Pressure [Ri ght Arm] 121/50 L Pulse Oximetry 92 Oxygen Delivery Me thod Nasal Cannula Oxygen Flow Rate 1 Fraction of Inspir ed Oxygen 10/22/22 22:00 10/22/22 23:00 10/22/22 23:00 Temperature 97.9 F Pulse Rate 91 Pulse Rate [Right Pulse Oximeter] 94 101 H Respiratory Rate 20 20 Blood Pressure Blood Pressure [Ri ght Arm] 93/51 L Pulse Oximetry 91 Oxygen Delivery Me thod Nasal Cannula Oxygen Flow Rate 1 Fraction of Inspir ed Oxygen 10/23/22 00:00 10/23/22 02:00 10/23/22 03:00 Temperature 97.9 F 97.7 F Pulse Rate 88 Pulse Rate [Right Pulse Oximeter] 101 H 94 Respiratory Rate 20 20 Blood Pressure Blood Pressure [Ri ght Arm] 100/55 L 107/91 H Pulse Oximetry 92 90 Oxygen Delivery Me thod Nasal Cannula Nasal Cannula Oxygen Flow Rate 1.5 1.5 Fraction of Inspir ed Oxygen 10/23/22 03:00 10/23/22 04:00 10/23/22 06:00 Temperature 98 F 97.7 F Pulse Rate Pulse Rate [Right Pulse Oximeter] 94 92 91 Respiratory Rate 20 20 20 Blood Pressure Blood Pressure [Ri ght Arm] 130/65 100/80 Pulse Oximetry 89 92 Oxygen Delivery Me thod Nasal Cannula Nasal Cannula Oxygen Flow Rate 1.5 1.5 Fraction of Inspir ed Oxygen 10/23/22 07:00 10/23/22 09:21 Temperature Pulse Rate 89 Pulse Rate [Right Pulse Oximeter] Respiratory Rate Blood Pressure Blood Pressure [Ri ght Arm] Pulse Oximetry Oxygen Delivery Me thod Oxygen Flow Rate 30 Fraction of Inspir ed Oxygen 30 Labs Labs: Laboratory Results - last 24 hr 10/22/22 10/22/22 10/22/22 10:15 11:04 12:25 WBC RBC Hgb Hct MCV MCH MCHC RDW Coeff of Mike Plt Count Neut % (Auto) Lymph % (Auto) [place] % (Auto) Eos % (Auto) Baso % (Auto) Neut # (Auto) Lymph # (Auto) [place] # (Auto) Eos # (Auto) Baso # (Auto) Abs Immat Gran (auto) Imm/Tot Granulo (auto) VBG pH 7.406 VBG pCO2 67 H* VBG pO2 36.0 VBG HCO3 42 H Sodium Potassium Chloride Carbon Dioxide BUN Creatinine Estimated Creat Clear Estimated GFR Glucose Lactate Calcium Ionized Calcium Caro Magnesium Total Bilirubin 0.3 Direct Bilirubin 0.1 AST 31 ALT 12 Alkaline Phosphatase 53 C-Reactive Protein 13.8 H NT-Pro-B Natriuret Pep Total Protein 6.7 Albumin 3.4 Lipase Procalcitonin 0.23 Urine Color Yellow Urine Appearance Clear Urine pH 7.5 Ur Specific [place] 1.015 Urine Protein Negative Urine Glucose (UA) Negative Urine Ketones Negative Urine Blood Negative Urine Nitrite Negative Urine Bilirubin Negative Urine Urobilinogen 0.2 Ur Leukocyte Esterase Negative Urine RBC 0-2 Urine WBC 0-2 Ur Squamous Epith Cells None Urine Bacteria None Free/Total Valproic Acd See Scanned Report SARS-CoV-2 (PCR) Negative SARS-CoV-2 Influenza Type A (PCR) Negative PCR FLU A Influenza Type B (PCR) Negative PCR FLU B RSV (PCR) Negative PCR RSV Lab Acknowledgement 10/22/22 10/23/22 10/23/22 12:40 05:50 11:08 WBC 10.75 RBC 2.75 L Hgb 9.5 L Hct 30.5 L MCV 111 H MCH 35 H MCHC 31 L RDW Coeff of Mike 13.4 Plt Count 142 Neut % (Auto) 57.1 Lymph % (Auto) 36.1 [place] % (Auto) 6.2 Eos % (Auto) 0.3 Baso % (Auto) 0.1 Neut # (Auto) 6.14 Lymph # (Auto) 3.88 H [place] # (Auto) 0.70 Eos # (Auto) 0.03 Baso # (Auto) 0.01 Abs Immat Gran (auto) 0.02 Imm/Tot Granulo (auto) 0.2 VBG pH 7.300 L 7.300 L VBG pCO2 73 H* 70 H* VBG pO2 87.1 H 40.3 VBG HCO3 36 H 34 H Sodium 140 Potassium 4.0 Chloride 104 Carbon Dioxide 38 H BUN 10 Creatinine 0.5 Estimated Creat Clear 95.82 Estimated GFR 108 Glucose 105 Lactate 0.5 Calcium 7.9 L Ionized Calcium Caro 1.18 Magnesium 1.9 Total Bilirubin 0.2 Direct Bilirubin AST 17 ALT 9 Alkaline Phosphatase 47 C-Reactive Protein 16.7 H NT-Pro-B Natriuret Pep 1200 Total Protein 5.8 L Albumin 2.8 L Lipase 29 Procalcitonin 0.19 Urine Color Urine Appearance Urine pH Ur Specific [place] Urine Protein Urine Glucose (UA) Urine Ketones Urine Blood Urine Nitrite Urine Bilirubin Urine Urobilinogen Ur Leukocyte Esterase Urine RBC Urine WBC Ur Squamous Epith Cells Urine Bacteria Free/Total Valproic Acd SARS-CoV-2 (PCR) Influenza Type A (PCR) Influenza Type B (PCR) RSV (PCR) Lab Acknowledgement Test Added
[2022-10-23] MEDS: VALPROATE SODIUM 1,000 MG in 0.9 % SODIUM CHLORIDE 100 ml 100 ML 110 MG IVPB (11:30)
--- NOTE | 2022-10-23 12:17 | PC.SOCIAL ---
Discharge planning: Called [facility] and confirmed pt is a resident of the snf and is on a bed hold while in the hospital. Pt is expected to return to [facility] at discharge.
[2022-10-23] MEDS: ACETAMINOPHEN 500 MG TABLET 1000 MG PO ×2 (12:46→21:12)
[2022-10-23 13:09] LABS: Keppra (Levetiracetam) 86 ug/mL (10-40)
[2022-10-23] MEDS: HYDROCORTISONE 1 % CREAM 1 APPLIC TOPICAL (13:17)
[2022-10-23] MEDS: NYSTATIN CREAM 30 GM 1 APPLIC TOPICAL ×2 (13:17→21:11)
--- NOTE | 2022-10-23 16:19 | PC.NURSE ---
AT BEGINNING OF SHIFT, PATIENT SEDATED AND AROUSABLE ONLY TO STERNAL RUB. DR. ARANDA IN ROOM. BP AT THAT TIME 80'S/40'S. NARCAN 0.4MG IV PUSH ADMINISTERED AND PATIENT DID AWAKEN. PATIENT ANSWERED YES AND NO QUESTIONS AND DID FALL BACK ASLEEP BUT EASILY AROUSABLE TO VOICE AND LIGHT TOUCH. PLACED IN [place]. BP'S INCREASED 100-110'S/60-70'S. HEART RATE 80-90'S. RR 20. AFEBRILE. PATIENT NOTED TO BE TWITCHING IN BED AND EYES WERE ROLLED BACK IN HEAD. DR. ARANDA UPDATED AND VALIUM IV PUSH ADMINISTERED FOR SUSPECTED SEIZURE ACTIVITY. AFTER VALIUM PATIENT AWAKE AND ALERT FOR A SHORT TIME AND ABLE TO DRINK SMALL AMOUNT OF FLUIDS. SEIZURE MEDS WERE ADMINISTERED IV PATIENT NOT ABLE TO TAKE IN PO PILLS THIS AM. PATIENT INCONTINENT OF LARGE AMOUNTS OF URINE. BEDDING CHANGED WITH ATTENDS CHANGE. PATIENT WAS ABLE TO EAT PUREED LUNCH BUT NEEDS TO BE FED. AFTER LUNCH, PATIENT'S MOM IN ROOM AND PATIENT BEGAN REPORTING TOOTH PAIN AND WAS ABLE TO TAKE OXYCODONE 5MG PO AND TYLENOL CRUSHED IN JELLO. PATIENT RESTING AT THIS TIME.
[2022-10-23] MEDS: AZITHROMYCIN 500 MG in 0.9 % SODIUM CHLORIDE 250 ml 250 ML 260 MG IVPB (17:19)
--- NOTE | 2022-10-23 19:46 | PC.NURSE ---
End of shift. pt has been pleasant. mouth pain on and off she has a fentanyl patch. she is incontinent of urine. 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 she is on thicket and purred diet. VSS. mom was here visiting./ she is incontinent and had a bed change. she is turned and repositioned q2 hours. seizures precautions are on. tele shows NSR.
[2022-10-23] MEDS: DIVALPROEX SODIUM 125 MG CAP.DR.SPR 625 MG PO (20:08)
[2022-10-23] MEDS: SENNOSIDES 1 TAB TABLET 2 TAB PO (21:11)
[2022-10-23] MEDS: QUETIAPINE 100 MG TABLET PO (21:12)
[2022-10-24] VITALS (19 sets, daily range): BP systolic 100–168; BP diastolic 58–85; PULSE 81–96; RESP 16–20; TEMP 35.7–36.6; O2SAT 91–97
[2022-10-24] MEDS: PIPERACILLIN/TAZOBACTAM 3.375 GM in 0.9 % SODIUM CHLORIDE Mini-bag 100 ML IVPB ×4 (02:13→19:26)
[2022-10-24] MEDS: IPRAT-ALBUT 0.5-2.5 MG/3 ML NEB 1 NEB IH ×4 (03:21→20:34)
[2022-10-24] MEDS: DIVALPROEX SODIUM 125 MG CAP.DR.SPR 500 MG PO (06:30)
[2022-10-24] MEDS: 5 % DEX/0.9 SOD CHL+KCL 20 mEq 1,000 ML 125 ML IV (06:31)
--- NOTE | 2022-10-24 07:25 | PC.NURSE ---
At start of shif t pt's sats in the low 80's on 30L and 21%. Spoke with MD and to adjust settings as needed to maintain 88% and above. Increased to 35L and 21% with no change in sats. Decreased to 30L and increased to 25%. Sats then maintained 88-93. Attempted yto decrease % several times during the night and was not able to leave decreased. HiFlo remains at 30L and 25%. Turned and repositioned as able as pt refused several times by hitting out at staff. Voided x1 No stool. Other VSS.
[2022-10-24 07:40] LABS: HCO3 VBG 34 mmol/L (21-28); Ionized Calcium* 1.12 mmol/L (1.11-1.30); PCO2 VBG 53 mmHG (40-50); PO2 VBG 76.6 mmHG (25-47); pH VBG 7.422 (7.32-7.43)
[2022-10-24 07:47] LABS: Basophils Absolute Auto 0.02 K/uL (0.00-0.30); Basophils Percent Auto 0.3 % (0.0-3.0); Eosinophils Absolute Auto 0.05 K/uL (0.00-0.50); Eosinophils Percent Auto 0.8 % (0.0-7.0); Hematocrit 33.6 % (33.0-51.0); Hemoglobin* 10.5 gm/dL (12.0-16.0); Immature Granulocytes Abs Auto 0.03 K/uL (0.00-0.30); Immature Granulocytes Pct Auto 0.5 %; Lymphocytes Absolute Auto 2.39 K/uL (0.90-2.90); Lymphocytes Percent Auto 38.6 % (20-44); Mean Corpuscular HGB Conc 31 gm/dL (32-36); Mean Corpuscular Hemoglobin 34 pg (26-34); Mean Corpuscular Volume 109 fL (80-100); Neutrophils Absolute Auto 3.08 K/uL (1.7-7.0); Neutrophils Percent Auto 49.8 % (42.0-72.0); Platelet Count* 124 K/uL (140-440); RDW Coefficient of Variation % 13.2 % (11.5-15.5); Red Blood Count 3.07 m/uL (4.00-5.20); White Blood Count* 6.19 K/uL (4.50-11.00)
[2022-10-24 07:51] LABS: Slide Review Reflex No
--- NOTE | 2022-10-24 07:57 | CRLHL7_ITS ---
For Patients: As a result of the Century Cures Act, medical imaging exams and procedure reports are released immediately into your electronic medical record. You may view this report before your referring provider. If you have questions, please contact your health care provider. Indication: Infection, sepsis, pain in molar area. Technique: Axial CT face obtained after administration of 95 mL Isovue 370 contrast. Bone and soft tissue algorithms, coronal and sagittal reformats. Comparison: None available Findings: Exam is limited due to extensive streak artifact from dental amalgam and spinal hardware. Scattered dental caries, most notably involving the left posterior mandibular molar. Periapical lucency associated with the left maxillary 2nd premolar, protruding into the floor of the left maxillary antrum, with potential cortical dehiscence, and mild overlying mucosal thickening/mucous retention cyst. No discrete subperiosteal fluid collection identified to suggest dental abscess. No suspicious soft tissue air or radiopaque foreign body identified. Mildly prominent cervical lymph nodes, including levels 1 B and 2A measuring up to 1 cm short axis, presumed reactive. Posterior screw and alina fusion changes beginning at C2, with interbody spacers beginning at C3-4, and mature bone ankylosis extending caudally beyond the field of view. Impression: 1. Limited exam due to extensive streak artifact from dental amalgam and spinal hardware. 2. Scattered dental caries, most notably involving the left posterior mandibular molar, and left maxillary 2nd premolar periapical lucency, protruding into the left maxillary antrum, with potential cortical dehiscence and mild overlying the coastal thickening. 3. No discrete subperiosteal/soft tissue abscess identified. Mildly prominent cervical lymph nodes, presumably reactive. Please note that all CT scans at this facility use dose modulation, iterative reconstruction, and/or weight-based dosing when appropriate to reduce radiation dose to as low as reasonably achievable. Dictated by Christine Haider MD @ 10/24/2022 3:35:58 PM (Electronically Signed)
--- NOTE | 2022-10-24 07:57 | CRLHL7_ITS ---
For Patients: As a result of the 21st Century Cures Act, medical imaging exams and procedure reports are released immediately into your electronic medical record. You may view this report before your referring provider. If you have questions, please contact your health care provider. INDICATION: Infection. Sepsis. Patient has autism and unable to follow directions well, infection, chest pain, sepsis TECHNIQUE: CT chest with i.v. contrast using pulmonary angiographic technique. Coronal and sagittal reformats were obtained. CONTRAST: 95 mL Isovue 370 COMPARISON: None FINDINGS: The sensitivity and specificity of the exam are moderately limited by beam hardening artifacts from scanning with the arms by the patient`s side and motion artifact from patient`s inability to maintain a breath hold. Cardiovascular: The pulmonary arteries are unremarkable in enhancement with no evidence of acute pulmonary embolism. The heart has an unremarkable appearance and size. No sign of aneurysm in the thoracic aorta. Mediastinum: No mass or adenopathy seen. Lung: Segmental consolidation is present in the left lower lobe. Mild bibasilar discoid atelectasis is seen. There is an ill-defined rounded subpleural nodule in the superior right lower lobe measuring 1.2 cm. Pleura and pericardium: Small to moderate bilateral pleural effusions are present. A small pericardial effusion is present measuring up to 1.3 cm in maximal width. Chest wall and axilla: No mass or adenopathy seen. Bone: Posterior spinal fusion of the cervicothoracic junction is partially visualized. Mild dextroscoliosis of the upper thoracic spine is noted. Upper abdomen: Unremarkable. IMPRESSIONS: 1. Small to moderate bilateral pleural effusions are present. 2. A small pericardial effusion is present measuring up to 1.3 cm in maximal width. 3. Segmental consolidation is present in the left lower lobe. These findings can be seen with atelectasis and/or pneumonia. 4. There is an ill-defined rounded subpleural nodule in the superior right lower lobe measuring 1.2 cm. Impression this may represent a focus of atelectasis or infiltrate. Follow-up CT in 3 months is recommended to document resolution. Dictated by Abraham Robles MD @ 10/24/2022 11:21:20 PM Please note that all CT scans at this facility use dose modulation, iterative reconstruction, and/or weight-based dosing when appropriate to reduce radiation dose to as low as reasonably achievable. Dictated by: Abraham Robles MD @ 10/24/2022 23:21:36 (Electronically Signed)
[2022-10-24 08:02] LABS: Albumin* 2.8 g/dL (3.3-5.0); Chloride* 106 mmol/L (96-114); Potassium* 3.8 mmol/L (3.6-5.1); Sodium* 141 mmol/L (135-149)
[2022-10-24 08:04] LABS: Bilirubin Total* 0.3 mg/dL (0.1-1.5); Creatinine* 0.4 mg/dL (0.5-1.5); Est. Creatinine Clearance* 119.77; Estimated Glomerular Filt Rate 114 ml/min
[2022-10-24 08:05] LABS: Alanine Aminotransferase* 11 U/L (4-35); Alkaline Phosphatase* 44 U/L (40-150); Aspartate Amino Transferase* 19 U/L (12-35); Blood Urea Nitrogen* 6 mg/dL (7-30); Carbon Dioxide* 34 mmol/L (20-32); Glucose* 102 mg/dL (60-115); Total Protein* 5.9 g/dL (6.0-8.3)
[2022-10-24 08:06] LABS: Magnesium* 1.8 mg/dL (1.5-2.6)
[2022-10-24 08:22] LABS: Procalcitonin* 0.12 ng/mL (<0.50)
[2022-10-24 08:23] LABS: NT Pro B Type NatriureticPept* 2120 pg/mL
--- NOTE | 2022-10-24 09:06 | PM.IMPN1 ---
Progress Note: A&P Assessment and plan (1) Acute respiratory failure with hypoxia and hypercapnia: Problem details: From aspiration pneumonia most likely. Zosyn and vancomycin in the emergency room - Zosyn and start azithromycin on the floor. trend gas, hypercapnia, respiratory effort, underlying seizure disorder Status: Acute (2) Aspiration pneumonia: Problem details: hypercapnia and hypoxia resolving. gas much improved today. remains on azithromycin and zosyn. will narrow with knowledge of MRSA+ nasal swab and findings on the CT chest when completed later this am on 10/24/22. Status: Acute (3) Hypercarbia: Problem details: improved on HFO2. Status: Acute (4) Opioid dependence: Problem details: fentanyl duragesic started 10/22 prn oxy. reduced dose to 2.5-5. avoid if possible; narcan x 1 (0.2mg IV) given am of 10/23 i wonder if pain in gumline is actually more the source than the chronic neck pain. Status: Acute (5) Chronic pain: Problem details: Patient takes 10 mg of oxycodone t.i.d. with p.r.n. 5 mg dosing. The mother was telling me that she has done better when on transdermal fentanyl and she was in discussions with this with the new [facility] provider fentanyl duragesic started on 10/22/22 acute on chronic pain is being investigated as well. Whit has been complaining of right upper dental/jaw pain for months. there has been attempts at a sedated cleaning appointment/eval and is finally scheduled for 10/26/22 Status: Acute (6) Cervical radiculopathy due to degenerative joint disease of spine: Problem details: Source of her chronic pain. She had a large fusion of her cervical spine in 2018. some concern about a subacute issue in the right upper jaw as well Status: Acute (7) Horacio-Gastaut syndrome: Problem details: Noted. Potentially having seizures, absent/partial complex. We gave the Keppra IV in the ED. I have ordered her Depakote and Keppra per usual dosing regimen. May need bedside neurology with [facility] if we feel she is still having seizures later today. I've substituted IV doses when not awake enough to take oral. holding evening dose of keppra on 10/23 given random level so high upon presentation yesterday (>80) in the ED on 10/22 Status: Acute (8) Seizure disorder: Problem details: Continue dosing with her home regimen - on/off able to cooperate with PO meds. keppra and valproic acid IV if needed. Status: Acute (9) Developmental delay with autism spectrum disorder and gait instability: Problem details: Noted Status: Acute (10) Congenital hypothyroidism: Problem details: Continue dosing with her Synthroid regimen. Status: Acute Subjective Date Seen: 10/24/22 Interval history: Daily Progress Note - Hospital Medicine Day #: 3 CC: Aspiration pneumonia, acute respiratory failure, chronic seizure disorder, developmental delay OVERNIGHT UPDATES FROM STAFF & MED, LAB, IMAGING UPDATES When I arrived this morning and from her improvement throughout yesterday afternoon and last evening happy to see that she seems at her baseline from a cognitive perspective. She excrete ches in 1-2 word sentences. She is much more communicative and calm today. We have been able to wean down her FiO2 on her high-flow to nearly room air. Her blood gas is much improved overnight. Appetite has returned. I have held her fluids this morning. Her acute on chronic pain is still difficult to sort out. The more I have spoken with her mother it sounds as if the right upper jaw has been a source of discomfort and a sedated dental cleaning is planned for the 26 of October. There has been no imaging or x-rays done currently on this area. Yesterday's one view chest x-ray showed some fluid overload and the retrocardiac infiltrate. I would like to image both that mandible and her chest to help clarify our antibiotic plan, any changes in her p.o. intake as it regards her dysphagia, and any Oral surgery planning needed for her upcoming appointment at [facility] [place]. Zosyn and vancomycin were administered in the ER yesterday prior to arrival on the floor. We have continued now Zosyn and azithromycin. No steroids. From a seizure perspective, I suspect with this acute illness she was actually having a partial complex seizure. Yesterday she was given 10 mg of IV Valium with excellent results. It was shortly after this that she seemed to return to her normal cognitive and physical baseline. No further eye rolling or twitching noted. CBC is quite reassuring. Her hemoglobin is returning to normal. Her leukocytosis is resolved. Her platelet count did drop minimally to 124. Her blood gas looks much better today her pH is 7.4. The CO2 retention has resolved. Her CO2 level was only 53 this morning with a high being 73 on the morning of the 8th. Electrolytes and renal function all look normal. This includes a normal ionized calcium, magnesium, LFTs are normal CRP is now down trending. 16.7 yesterday 6.0 this morning MRSA noted on her nasal swab 1 blood culture negative to date Mildly hypertensive otherwise normal vital signs. Sats are in the low 90s with high-flow Objective: responsive, smiling, saying 'thank-you' and seems comfortable. expresses she is hungry. Vitals: see above Lungs: Shallow inspirations, difficult to auscultate at the bases. Cardiac: S1S2. Disposition/Potential discharge - Likely to return to previous living situation. Total time is 35 minutes with greater than 50% spent in counseling and coordination of care. Exam Const: Vital Signs, click to edit/add: Vital Signs - 24 hr 10/23/22 09:21 10/23/22 09:30 10/23/22 10:00 Temperature 96.9 F L Pulse Rate Pulse Rate [Right Pulse Oximeter] 94 97 Pulse Rate [Right Radial] Respiratory Rate 20 Blood Pressure [Ri ght Arm] 81/50 L 114/53 L Pulse Oximetry 96 Oxygen Delivery Me thod Nasal Cannula Oxygen Flow Rate 30 30 Fraction of Inspir ed Oxygen 30 30 10/23/22 10:15 10/23/22 11:00 10/23/22 11:00 Temperature Pulse Rate 94 Pulse Rate [Right Pulse Oximeter] 91 97 Pulse Rate [Right Radial] Respiratory Rate 20 Blood Pressure [Ri ght Arm] 106/58 L Pulse Oximetry Oxygen Delivery Me thod Oxygen Flow Rate Fraction of Inspir ed Oxygen 10/23/22 11:21 10/23/22 11:30 10/23/22 12:00 Temperature 96.8 F L Pulse Rate Pulse Rate [Right Pulse Oximeter] 101 H 97 Pulse Rate [Right Radial] Respiratory Rate 20 Blood Pressure [Ri ght Arm] 105/61 99/60 Pulse Oximetry 100 Oxygen Delivery Me thod Nasal Cannula Oxygen Flow Rate 30 Fraction of Inspir ed Oxygen 30 30 10/23/22 13:00 10/23/22 13:53 10/23/22 14:42 Temperature Pulse Rate Pulse Rate [Right Pulse Oximeter] 92 Pulse Rate [Right Radial] Respiratory Rate 20 Blood Pressure [Ri ght Arm] 120/60 Pulse Oximetry 100 98 Oxygen Delivery Me thod Nasal Cannula Oxygen Flow Rate 30 Fraction of Inspir ed Oxygen 21 21 10/23/22 16:30 10/23/22 16:30 10/23/22 16:30 Temperature 97.1 F L Pulse Rate 90 Pulse Rate [Right Pulse Oximeter] Pulse Rate [Right Radial] 87 Respiratory Rate 18 Blood Pressure [Ri ght Arm] 120/68 Pulse Oximetry 100 Oxygen Delivery Me thod High Flow Nasal Ca nnula Oxygen Flow Rate 30 Fraction of Inspir ed Oxygen 21 21 10/23/22 16:30 10/23/22 18:30 10/23/22 18:30 Temperature 97.0 F L Pulse Rate Pulse Rate [Right Pulse Oximeter] Pulse Rate [Right Radial] 87 82 Respiratory Rate 18 18 Blood Pressure [Ri ght Arm] 130/81 Pulse Oximetry 100 Oxygen Delivery Me thod High Flow Nasal Ca nnula Oxygen Flow Rate 30 Fraction of Inspir ed Oxygen 21 21 10/23/22 19:00 10/23/22 20:17 10/23/22 20:17 Temperature 96.6 F L Pulse Rate 90 Pulse Rate [Right Pulse Oximeter] 89 Pulse Rate [Right Radial] Respiratory Rate 16 Blood Pressure [Ri ght Arm] 139/95 H Pulse Oximetry 93 Oxygen Delivery Me thod High Flow Nasal Ca nnula Oxygen Flow Rate Fraction of Inspir ed Oxygen 21 10/23/22 21:42 10/23/22 21:42 10/23/22 22:36 Temperature 97.4 F L Pulse Rate 94 Pulse Rate [Right Pulse Oximeter] 92 Pulse Rate [Right Radial] Respiratory Rate 20 Blood Pressure [Ri ght Arm] 146/73 H Pulse Oximetry 93 Oxygen Delivery Me thod High Flow Nasal Ca nnula Oxygen Flow Rate 30 Fraction of Inspir ed Oxygen 21 21 10/23/22 23:38 10/23/22 23:40 10/24/22 00:00 Temperature 96.6 F L Pulse Rate Pulse Rate [Right Pulse Oximeter] 92 Pulse Rate [Right Radial] 90 Respiratory Rate 20 Blood Pressure [Ri ght Arm] 139/69 Pulse Oximetry Oxygen Delivery Me thod Oxygen Flow Rate Fraction of Inspir ed Oxygen 25 25 10/24/22 01:27 10/24/22 02:00 10/24/22 02:00 Temperature 97 F L Pulse Rate Pulse Rate [Right Pulse Oximeter] Pulse Rate [Right Radial] 91 Respiratory Rate 20 Blood Pressure [Ri ght Arm] 120/81 Pulse Oximetry 91 Oxygen Delivery Me thod High Flow Nasal Ca nnula Oxygen Flow Rate 30 Fraction of Inspir ed Oxygen 25 25 25 10/24/22 03:00 10/24/22 03:40 10/24/22 04:00 Temperature Pulse Rate 85 Pulse Rate [Right Pulse Oximeter] Pulse Rate [Right Radial] Respiratory Rate Blood Pressure [Ri ght Arm] Pulse Oximetry Oxygen Delivery Me thod Oxygen Flow Rate Fraction of Inspir ed Oxygen 25 25 10/24/22 04:48 10/24/22 06:00 10/24/22 06:00 Temperature 97.9 F Pulse Rate Pulse Rate [Right Pulse Oximeter] Pulse Rate [Right Radial] 87 Respiratory Rate 20 Blood Pressure [Ri ght Arm] 168/85 H Pulse Oximetry 93 Oxygen Delivery Me thod High Flow Nasal Ca nnula Oxygen Flow Rate 30 Fraction of Inspir ed Oxygen 25 25 25 10/24/22 07:04 10/24/22 07:45 10/24/22 07:45 Temperature 97.6 F Pulse Rate 87 Pulse Rate [Right Pulse Oximeter] 89 Pulse Rate [Right Radial] 89 Respiratory Rate 20 Blood Pressure [Ri ght Arm] 163/72 H Pulse Oximetry 92 Oxygen Delivery Me thod High Flow Nasal Ca nnula Oxygen Flow Rate Fraction of Inspir ed Oxygen 23 Labs Labs: Laboratory Results - last 24 hr 10/22/22 10/23/22 10/24/22 10:15 11:08 07:35 WBC 6.19 RBC 3.07 L Hgb 10.5 L Hct 33.6 MCV 109 H MCH 34 MCHC 31 L RDW Coeff of Mike 13.2 Plt Count 124 L Neut % (Auto) 49.8 Lymph % (Auto) 38.6 Forest % (Auto) 10.0 Eos % (Auto) 0.8 Baso % (Auto) 0.3 Neut # (Auto) 3.08 Lymph # (Auto) 2.39 Forest # (Auto) 0.60 Eos # (Auto) 0.05 Baso # (Auto) 0.02 Abs Immat Gran (auto) 0.03 Imm/Tot Granulo (auto) 0.5 VBG pH 7.300 L 7.422 VBG pCO2 70 H* 53 H VBG pO2 40.3 76.6 H VBG HCO3 34 H 34 H Sodium 141 Potassium 3.8 Chloride 106 Carbon Dioxide 34 H BUN 6 L Creatinine 0.4 L Estimated Creat Clear 119.77 Estimated GFR 114 Glucose 102 Lactate 0.5 Calcium 8.0 L Ionized Calcium Caro 1.12 Magnesium 1.8 Total Bilirubin 0.3 AST 19 ALT 11 Alkaline Phosphatase 44 C-Reactive Protein 6.0 H NT-Pro-B Natriuret Pep 2120 Total Protein 5.9 L Albumin 2.8 L Procalcitonin 0.12 Levetiracetam 86 H
[2022-10-24] MEDS: APIXABAN 5 MG TABLET PO ×2 (09:49→20:33)
[2022-10-24] MEDS: QUETIAPINE 100 MG TABLET PO ×3 (09:50→20:33)
[2022-10-24] MEDS: allopurinoL 300 MG TABLET PO (09:50)
[2022-10-24] MEDS: FUROSEMIDE 40 MG TABLET PO (09:51)
[2022-10-24] MEDS: GABAPENTIN 100 MG CAPSULE 200 MG PO ×3 (09:51→20:32)
[2022-10-24] MEDS: GABAPENTIN 300 MG CAPSULE 600 MG PO ×3 (09:52→20:32)
[2022-10-24] MEDS: ESCITALOPRAM 10 MG TABLET 20 MG PO (09:52)
[2022-10-24] MEDS: ACETAMINOPHEN 500 MG TABLET 1000 MG PO ×3 (09:52→20:32)
[2022-10-24] MEDS: OMEPRAZOLE 20 MG CAPSULE DR 40 MG PO (09:52)
[2022-10-24] MEDS: SENNOSIDES 1 TAB TABLET PO (09:53)
[2022-10-24] MEDS: levETIRAcetam 500 MG TABLET 1000 MG PO (09:56)
[2022-10-24] MEDS: LEVOTHYROXINE 75 MCG TABLET PO (09:56)
[2022-10-24] MEDS: HYDROCORTISONE 1 % CREAM 1 APPLIC TOPICAL ×2 (10:08→20:56)
[2022-10-24] MEDS: NYSTATIN CREAM 30 GM 1 APPLIC TOPICAL ×2 (10:08→20:34)
[2022-10-24] MEDS: LORazepam 2 MG/ML inj 1 MG IVP (11:49)
[2022-10-24] MEDS: DIVALPROEX SODIUM 125 MG CAP.DR.SPR 625 MG PO ×2 (14:12→20:31)
--- NOTE | 2022-10-24 15:37 | PC.NURSE ---
Pt is no longer requiring Hi flow oxygen. Please see eMar for scheduled medications provided on day shift. Pills crushed, taken with jello and sips of juice. Ativan 1 mg IV provided prior to CT scan. Eval by Dr. Hickman. TELE indicates NSR. Pt tapered from 3Litres nc to 1 L/nc this afternoon. aware. New order to d/c tele, taper oxygen with goal of sats 88-90% on room air. Continue POC, report to Han RN for evening shift.
[2022-10-24] MEDS: AZITHROMYCIN 500 MG in 0.9 % SODIUM CHLORIDE 250 ml 250 ML 255 MG IVPB (16:40)
[2022-10-24] MEDS: fentaNYL 25 MCG/HR PATCH 1 PATCH TRANSDERMA (18:02)
[2022-10-24] MEDS: levETIRAcetam 500 MG TABLET 1250 MG PO (20:33)
[2022-10-24] MEDS: SENNOSIDES 1 TAB TABLET 2 TAB PO (20:33)
[2022-10-24] MEDS: SODIUM CHLORIDE 0.9 % (FLUSH) 10 ML SYRINGE 5 ML IVF (20:48)
--- NOTE | 2022-10-24 22:04 | PC.NURSE ---
Pt alert to self. Upon start of shift manual writer attempted to locate Pt?s fentanyl patch; Patch was not found. Public Finance Specialist requested help from Zonia MULTANI. The manual writer and RN rolled Pt and sat Pt up and were still unable to locate patch. Public Finance Specialist informed Hospitalist and pharmacy. Pt sleeping most of shift. Pt had pain when moving. Pt turned and repositioned every two hours. Pt changed as needed. Pt resistive to cares at times when changing pad first half of shift. Pt was more cooperative last half of shift. Pt weaned to 0.5 tolerating well at low 90?s. Pt weaned off o2 and saturations between 88-92%. When Pt sleeping towards end of shift and saturations dropped to low 80?s; Pt repositioned and on 1 L and saturations were 82%-92%. Pt changed to oxi mask and saturations were 88%-91% on 0.5 L.?
[2022-10-25 00:25] VITALS: RESP 16
[2022-10-25] MEDS: PIPERACILLIN/TAZOBACTAM 3.375 GM in 0.9 % SODIUM CHLORIDE Mini-bag 100 ML IVPB (02:53)
[2022-10-25] MEDS: SODIUM CHLORIDE 0.9 % (FLUSH) 10 ML SYRINGE 5 ML IVF ×2 (02:54→09:31)
[2022-10-25 03:00] VITALS: BP 135/108; PULSE 91; RESP 20; TEMP 36.7; O2SAT 90
[2022-10-25 05:07] LABS: HCO3 VBG 38 mmol/L (21-28); PO2 VBG 29.2 mmHG (25-47); pH VBG 7.386 (7.32-7.43)
[2022-10-25 05:10] LABS: Hematocrit 48.9 % (33.0-51.0); Hemoglobin* 15.2 gm/dL (12.0-16.0); Mean Corpuscular HGB Conc 31 gm/dL (32-36); Mean Corpuscular Hemoglobin 34 pg (26-34); Mean Corpuscular Volume 108 fL (80-100); Platelet Count* 101 K/uL (140-440); Red Blood Count 4.52 m/uL (4.00-5.20); White Blood Count* 3.69 K/uL (4.50-11.00)
[2022-10-25 05:11] LABS: PCO2 VBG 64 mmHG (40-50)
[2022-10-25 05:12] LABS: Slide Review Reflex No
[2022-10-25 05:23] LABS: Chloride* 101 mmol/L (96-114)
[2022-10-25 05:24] LABS: Potassium* 3.5 mmol/L (3.6-5.1); Sodium* 143 mmol/L (135-149)
[2022-10-25 05:26] LABS: Creatinine* 0.5 mg/dL (0.5-1.5); Est. Creatinine Clearance* 95.82; Estimated Glomerular Filt Rate 108 ml/min
[2022-10-25 05:27] LABS: Blood Urea Nitrogen* 5 mg/dL (7-30); Calcium* 8.8 mg/dL (8.4-10.6); Carbon Dioxide* 36 mmol/L (20-32); Glucose* 86 mg/dL (60-115)
--- NOTE | 2022-10-25 06:42 | PC.NURSE ---
Pt incontinent of bowel and bladder. Change, Turn/Repo Q2H. Thicken liquids, tolerated well.
[2022-10-25 07:00] VITALS: BP 153/72; PULSE 89; RESP 20; TEMP 36.1; O2SAT 93
--- NOTE | 2022-10-25 09:10 | PM.IMPN1 ---
Progress Note: A&P Assessment and plan (1) Acute respiratory failure with hypoxia and hypercapnia: Problem details: From aspiration pneumonia most likely - I feel addressing her chronic significant dental caries are part of the prevention. continue thickened diet. Zosyn and Azithromycin transitioned to oral Augmentin 10/25/22 trend gas, hypercapnia, respiratory effort, underlying seizure disorder - all improved by day of discharge Status: Acute (2) Aspiration pneumonia: Problem details: hypercapnia and hypoxia resolved. Gas reflects mild hypercapnia. as of 10/25 on oral augmentin. Status: Acute (3) Hypercarbia: Problem details: improved on high flow o2. returned, mildly, off. This represents chronic sleep apnea. / patient's developmental disorder - she will not wear cpap. Status: Acute (4) Opioid dependence: Problem details: fentanyl duragesic started 10/22 prn oxy. reduced dose to 2.5-5. avoid if possible; narcan x 1 (0.2mg IV) given am of 10/23 i wonder if pain in gumline is actually more the source than the chronic neck pain. Status: Acute (5) Chronic pain: Problem details: Previous to admission, patient takes 10 mg of oxycodone t.i.d. with p.r.n. 5 mg dosing. The mother was telling me that she has done better when on transdermal fentanyl and she was in discussions with this with the new [facility] provider fentanyl duragesic started on 10/22/22 acute on chronic pain is being investigated as well. Whit has been complaining of right upper dental/jaw pain for months. there has been attempts at a sedated cleaning appointment/eval and is finally scheduled for 10/26/22 Status: Acute (6) Cervical radiculopathy due to degenerative joint disease of spine: Problem details: Source of her chronic pain. She had a large fusion of her cervical spine in 2018. some concern about a subacute issue in the right upper jaw as well Status: Acute (7) Horacio-Gastaut syndrome: Problem details: Noted. Potentially having seizures, absent/partial complex. We gave the Keppra IV in the ED. I have ordered her Depakote and Keppra per usual dosing regimen. May need bedside neurology with [facility] if we feel she is still having seizures later today. I've substituted IV doses when not awake enough to take oral. holding evening dose of keppra on 10/23 given random level so high upon presentation yesterday (>80) in the ED on 10/22 Status: Acute (8) Seizure disorder: Problem details: Continue dosing with her home regimen - on/off able to cooperate with PO meds. keppra and valproic acid IV if needed. Status: Acute (9) Developmental delay with autism spectrum disorder and gait instability: Problem details: Noted Status: Acute (10) Congenital hypothyroidism: Problem details: Continue dosing with her Synthroid regimen. Status: Acute Subjective Date Seen: 10/25/22 Interval history: Daily Progress Note - [facility] Medicine Day #: 4 CC: Aspiration pneumonia, acute respiratory failure - resolved, chronic seizure disorder, developmental delay, dental caries OVERNIGHT UPDATES FROM STAFF & MED, LAB, IMAGING UPDATES Patient has continued to improve. Able to wean oxygen yesterday after her CT scans. She is now on room air. She is eating well. She is communicating at her baseline. CTs yesterday show the known dental caries that are significant as well as bilateral pneumonia which we presumed and were treating appropriately. There is a small pericardial effusion. We debated ordering an echo, however in line with her goals of care we will not work this up. She has completed a 3 day course of azithromycin, Zosyn. All of her markers of inflammation have down trended. I transitioned her to oral Augmentin this morning. From a seizure perspective, I suspect with this acute illness she was actually having a partial complex seizure. No further seizures. She appears neurologically, clinically at her baseline. Leukocytosis has resolved with actually a mild leukopenia this morning which I think is likely related to her IV Zosyn. Hemoglobin is stable. Platelets are mildly depressed, again I think this is from her IV antibiotics. Her pH is stable. Off of high-flow overnight she did have an increase in her CO2. However, I believe this is more related to chronic sleep apnea and is her baseline given a normal pH. Her chemistries reflect a mild dip in her potassium, however normal other electrolytes and renal function. FACE CT Impression: 1. Limited exam due to extensive streak artifact from dental amalgam and spinal hardware. 2. Scattered dental caries, most notably involving the left posterior mandibular molar, and left maxillary 2nd premolar periapical lucency, protruding into the left maxillary antrum, with potential cortical dehiscence and mild overlying the coastal thickening. 3. No discrete subperiosteal/soft tissue abscess identified. Mildly prominent cervical lymph nodes, presumably reactive. CHEST CT 1. Small to moderate bilateral pleural effusions are present. 2. A small pericardial effusion is present measuring up to 1.3 cm in Maximal width. 3. Segmental consolidation is present in the left lower lobe. These findings can be seen with atelectasis and/or pneumonia. 4. There is an ill-defined rounded subpleural nodule in the superior right lower lobe measuring 1.2 cm. Impression this may represent a focus of atelectasis or infiltrate. Follow-up CT in 3 months is recommended to document resolution. MRSA noted on her nasal swab 1 blood culture negative to date Mildly hypertensive otherwise normal vital signs. Sats are in the low 90s on room air Objective: responsive, smiling, saying 'thank-you' and seems comfortable. expresses she is hungry. Vitals: see above Lungs: Shallow inspirations, difficult to auscultate at the bases. Cardiac: S1S2. Disposition/Potential discharge - Likely to return to previous living situation. Total time is 35 minutes with greater than 50% spent in counseling and coordination of care. Exam Const: Vital Signs, click to edit/add: Vital Signs - 24 hr 10/24/22 10:00 10/24/22 11:00 10/24/22 12:00 Temperature 97 F L Pulse Rate [Left A pical] 93 Pulse Rate [Right Pulse Oximeter] 93 Pulse Rate [Right Radial] 93 Respiratory Rate 20 Blood Pressure [Ri ght Arm] 126/85 Pulse Oximetry 93 Oxygen Delivery Me thod High Flow Nasal Ca nnula Oxygen Flow Rate Fraction of Inspir ed Oxygen 10/24/22 13:00 10/24/22 15:25 10/24/22 15:25 Temperature 96.2 F L Pulse Rate [Left A pical] Pulse Rate [Right Pulse Oximeter] 96 96 Pulse Rate [Right Radial] Respiratory Rate 20 Blood Pressure [Ri ght Arm] 130/82 Pulse Oximetry 97 94 Oxygen Delivery Me thod Nasal Cannula Oxygen Flow Rate 1 Fraction of Inspir ed Oxygen 10/24/22 19:00 10/24/22 23:00 10/24/22 23:50 Temperature 96.4 F L 97.7 F Pulse Rate [Left A pical] Pulse Rate [Right Pulse Oximeter] 83 81 Pulse Rate [Right Radial] Respiratory Rate 20 16 [facility] 100/59 L 114/58 L Pulse Oximetry 93 93 93 Oxygen Delivery Me thod Nasal Cannula OxyMask Oxygen Flow Rate 1 0.5 Fraction of Inspir ed Oxygen 10/25/22 00:25 10/25/22 03:00 10/25/22 07:00 Temperature 98.1 F 97 F L Pulse Rate [Left A pical] 89 Pulse Rate [Right Pulse Oximeter] 91 89 Pulse Rate [Right Radial] 89 Respiratory Rate 16 20 20 Blood Pressure [facility]] 135/108 H 153/72 H Pulse Oximetry 90 93 Oxygen Delivery Me thod Room Air Room Air Oxygen Flow Rate Fraction of Inspir ed Oxygen Labs Labs: Laboratory Results - last 24 hr 10/25/22 04:55 WBC 3.69 L RBC 4.52 Hgb 15.2 Hct 48.9 MCV 108 H MCH 34 MCHC 31 L Plt Count 101 L VBG pH 7.386 VBG pCO2 64 H* VBG pO2 29.2 VBG HCO3 38 H Sodium 143 Potassium 3.5 L Chloride 101 Carbon Dioxide 36 H BUN 5 L Creatinine 0.5 Estimated Creat Clear 95.82 Estimated GFR 108 Glucose 86 Calcium 8.8
[2022-10-25] MEDS: DIVALPROEX SODIUM 125 MG CAP.DR.SPR 500 MG PO (09:28)
[2022-10-25] MEDS: IPRAT-ALBUT 0.5-2.5 MG/3 ML NEB 1 NEB IH (09:28)
[2022-10-25] MEDS: AMOXICILLIN/CLAVULANATE 875 mg/125 mg TABLET PO (09:29)
[2022-10-25] MEDS: allopurinoL 300 MG TABLET PO (09:29)
[2022-10-25] MEDS: LEVOTHYROXINE 75 MCG TABLET PO (09:29)
[2022-10-25] MEDS: QUETIAPINE 100 MG TABLET PO (09:29)
[2022-10-25] MEDS: OMEPRAZOLE 20 MG CAPSULE DR 40 MG PO (09:29)
[2022-10-25] MEDS: FUROSEMIDE 40 MG TABLET PO (09:29)
[2022-10-25] MEDS: ESCITALOPRAM 10 MG TABLET 20 MG PO (09:30)
[2022-10-25] MEDS: ACETAMINOPHEN 500 MG TABLET 1000 MG PO (09:30)
[2022-10-25] MEDS: GABAPENTIN 100 MG CAPSULE 200 MG PO (09:30)
[2022-10-25] MEDS: GABAPENTIN 300 MG CAPSULE 600 MG PO (09:30)
[2022-10-25] MEDS: NYSTATIN CREAM 30 GM 1 APPLIC TOPICAL (09:33)
[2022-10-25] MEDS: HYDROCORTISONE 1 % CREAM 1 APPLIC TOPICAL (09:33)
[2022-10-25] MEDS: levETIRAcetam 500 MG TABLET 1000 MG PO (09:36)
[2022-10-25 11:00] VITALS: PULSE 89; RESP 20; O2SAT 93
--- NOTE | 2022-10-25 11:01 | PC.NURSE ---
Reportr to [facility] completed via telephone @ 1100am. Eval by Vick. Plan d/c to [facility] via EMS between 1200 and 1230 pm. Mother Wanda signed self-pay transfer consent form. IV site discontinued.
--- NOTE | 2022-10-25 11:17 | PC.SOCIAL ---
Discharge Planning: Spoke with hospitalist concerning importance of patient's dental surgery on 10/26/22. Followed up with Wanda and [facility]. Dental work and ride is already set up for 10/26 from [facility]. Patient will be discharged today back to [facility] by non-emergency ambulance. Dental appointment and ride will stay in place for tomorrow. Wanda pleased with plan. Social work to follow up as needed.
--- NOTE | 2022-10-25 11:22 | PC.NURSE ---
Charting Error above, IV site wrapped in COBAN and left in for planned dental work and sedation at [facility] tomorrow. Gerri held d/to dental work. Pt is being changed by CNAs in preparation for D/C to prior living situation at [facility]. Brother Ed and Mother Wanda present at bedside. RN notifed [facility] that IV site is to be left in place until dental appt completed.
--- NOTE | 2022-10-25 11:40 | PM.DS1 ---
DS: Providers Provider Date Seen: 10/25/22 Date of admission: 10/22/22 17:22 Primary care physician: Not a Local Provider Admitting Clinician: Nancy Hickman MD Consults: 10/22/22 13:53 Consult to Respiratory Therapy [CONS] Routine Comment: Reason(s) for RT Consult:: Consult Consult to Radiological Technician [CONS] Routine Comment: Reason for Consult:: Social Service Consult Attending Physician on discharge: Nancy Hickman MD Date of Discharge: 10/25/22 DS: Diagnosis Discharge Diagnosis (1) Acute respiratory failure with hypoxia and hypercapnia: Status: Acute Problem details: From aspiration pneumonia most likely - I feel addressing her chronic significant dental caries are part of the prevention. continue thickened diet. 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 Potentially having seizures, absent/partial complex. We gave the Keppra IV in the ED. I have ordered her Depakote and Keppra per usual dosing regimen. May need bedside neurology with [place] if we feel she is still having seizures later today. I've substituted IV doses when not awake enough to take oral. holding evening dose of keppra on 10/23 given random level so high upon presentation yesterday (>80) in the ED on 10/22 (3) Aspiration pneumonia: Status: Acute Problem details: hypercapnia and hypoxia resolved. Gas reflects mild hypercapnia. as of 10/25 on oral augmentin. (4) Hypercarbia: Status: Acute Problem details: improved on high flow o2. returned, mildly, off. This represents chronic sleep apnea. 2/2 patient's developmental disorder - she will not wear cpap. (5) Seizure disorder: Status: Acute Problem details: Continue dosing with her home regimen - on/off able to cooperate with PO meds. keppra and valproic acid IV if needed. (6) Developmental delay with autism spectrum disorder and gait instability: Status: Acute Problem details: Noted (7) Cervical radiculopathy due to degenerative joint disease of spine: Status: Acute Problem details: Source of her chronic pain. She had a large fusion of her cervical spine in 2018. some concern about a subacute issue in the right upper jaw as well (8) Opioid dependence: Status: Acute Problem details: fentanyl duragesic started 10/22 prn oxy. reduced dose to 2.5-5. avoid if possible; narcan x 1 (0.2mg IV) given am of 10/23 i wonder if pain in gumline is actually more the source than the chronic neck pain. (9) Chronic pain: Status: Acute Problem details: Previous to admission, patient takes 10 mg of oxycodone t.i.d. with p.r.n. 5 mg dosing. The mother was telling me that she has done better when on transdermal fentanyl and she was in discussions with this with the new [facility] provider fentanyl duragesic started on 10/22/22 acute on chronic pain is being investigated as well. Whit has been complaining of right upper dental/jaw pain for months. there has been attempts at a sedated cleaning appointment/eval and is finally scheduled for 10/26/22 DS: Summary Hospital Course Hospital Course: HOSPITALIST DISCHARGE SUMMARY ATTENDING PHYSICIAN: Nancy Hickman MD FINAL DIAGNOSIS: Aspiration pneumonia Horacio-Gastaut Syndrome Dental caries HOSPITAL FOLLOWUP ISSUES: [facility] Dental Clinic, sedated cleaning REFERRALS WHILE ADMITTED: PT, OT, social work REFERRALS AFTER DISCHARGE: [facility] dental clinic BRIEF HOSPITAL COURSE: Whit is a 57-year-old chronic developmental disability secondary to Horacio-Gastaut Syndrome who presented from her [facility] facility secondary to hypoxia and acute mental status changes. She was diagnosed with a bilateral aspiration pneumonia and was treated with IV antibiotics, oxygen support which included high-flow O2 for about 24 hours. Is thought to have chronic hypercapnia secondary to untreated sleep apnea but this did improve throughout treatment for her pneumonia. She does have significant dental caries which are likely increasing her risk for her aspiration events. She has a significant amount of chronic pain. This mostly stems from cervical degenerative disease for which she has had surgery for in the past. However, I do feel that some of this pain is acute with her poor dental hygiene. We feel that when Whit was ill she was having some partial complex seizures. We noted a twitching and eye rolling that was new for her. She was treated with IV diazepam with good results. Once this resolved we saw a dramatic improvement in her neuro behavior. We transitioned her from IV antibiotics to oral. We weaned her to room air. She was tolerating her normal thickened diet. There were no further seizures. Her mother is her stopped support. She had arranged a sedated dental cleaning for 10/26/2022. She has are clearance to proceed to this cleaning. This is necessary so her care team can arrange appropriate and necessary oral surgery. Her chronic pain was managed with fentanyl Duragesic. This enabled us to control her pain more smoothly and reduce her dependence on oxycodone. SUBSTANTIVE NOTATIONS ON IMAGING, LAB, MICROBIOLOGY/PATHOLOGY STUDIES: Leukocytosis has resolved with actually a mild leukopenia this morning which I think is likely related to her IV Zosyn. Hemoglobin is stable. Platelets are mildly depressed, again I think this is from her IV antibiotics. Her pH is stable. Off of high-flow overnight she did have an increase in her CO2. However, I believe this is more related to chronic sleep apnea and is her baseline given a normal pH. Her chemistries reflect a mild dip in her potassium, however normal other electrolytes and renal function. FACE CT Impression: 1. Limited exam due to extensive streak artifact from dental amalgam and spinal hardware. 2. Scattered dental caries, most notably involving the left posterior mandibular molar, and left maxillary 2nd premolar periapical lucency, protruding into the left maxillary antrum, with potential cortical dehiscence and mild overlying the coastal thickening. 3. No discrete subperiosteal/soft tissue abscess identified. Mildly prominent cervical lymph nodes, presumably reactive. CHEST CT 1. Small to moderate bilateral pleural effusions are present. 2. A small pericardial effusion is present measuring up to 1.3 cm in Maximal width. 3. Segmental consolidation is present in the left lower lobe. These findings can be seen with atelectasis and/or pneumonia. 4. There is an ill-defined rounded subpleural nodule in the superior right lower lobe measuring 1.2 cm. Impression this may represent a focus of atelectasis or infiltrate. Follow-up CT in 3 months is recommended to document resolution. MRSA noted on her nasal swab 1 blood culture negative to date DISCHARGE MEDICATIONS: See Reconciled list - SIGNIFICANT CHANGES: Fentanyl Duragesic 25 mcg Q 72 hours. This replaces her scheduled oxycodone and reduces her p.r.n. oxycodone order. Oral Augmentin for 7 days, 14 doses. Oxycodone 2.5-5 mg Q 8 hours p.r.n.. REVIEW OF SYSTEMS No new chest pain or dyspnea Pain controlled No voiding difficulties Tolerating diet challenge PHYSICAL EXAM: CONSTITUTIONAL: Happy. Communicating at her baseline. We she is at her baseline VITAL SIGNS: see record. HEENT: Normocephalic, atraumatic. PERRL, EOMI, conjunctivae pink, no scleral icterus. Ears and nose externally normal. Pharynx normal. NECK: No JVD. No carotid bruit, no thyromegaly, no adenopathy. CHEST: Clear to auscultation bilaterally. HEART: S1 and S2 normal. Edema ABDOMEN: Soft, nontender. Normal bowel sounds. MUSCULOSKELETAL: No gross joint deformity or swelling. NEURO: Cranial nerves intact. Grossly intact. No asymmetric findings. SKIN: No rashes, petechiae, concerning changes PSYCHIATRIC: Mood euthymic. DISPOSITION: Return to [facility]. Time spent on discharge 37 minutes. Status at Discharge Functional status at discharge: wheelchair bound Overall status at discharge: patient is back to baseline Time Spent with Patient Time attestation: Total time spent providing and/or coordinating discharge services: Time spent: Greater than 30 minutes Exam Const: Vital Signs, click to edit/add: Vital Signs - 24 hr 10/24/22 12:00 10/24/22 13:00 10/24/22 15:25 Temperature 97 F L 96.2 F L Pulse Rate [Left A pical] 93 Pulse Rate [Right Pulse Oximeter] 93 96 Pulse Rate [Right Radial] 93 Respiratory Rate 20 20 Blood Pressure [Ri t Arm] 126/85 130/82 Pulse Oximetry 93 97 94 Oxygen Delivery Me thod High Flow Nasal Ca nnula Nasal Cannula Oxygen Flow Rate 1 10/24/22 15:25 10/24/22 19:00 10/24/22 23:00 Temperature 96.4 F L Pulse Rate [Left A pical] Pulse Rate [Right Pulse Oximeter] 96 83 Pulse Rate [Right Radial] Respiratory Rate 20 Blood Pressure [Ri ght Arm] 100/59 L Pulse Oximetry 93 93 Oxygen Delivery Me thod Nasal Cannula Oxygen Flow Rate 1 10/24/22 23:50 10/25/22 00:25 10/25/22 03:00 Temperature 97.7 F 98.1 F Pulse Rate [Left A pical] Pulse Rate [Right Pulse Oximeter] 81 91 Pulse Rate [Right Radial] Respiratory Rate 16 16 20 Blood Pressure [Ri ght Arm] 114/58 L 135/108 H Pulse Oximetry 93 90 Oxygen Delivery Me thod OxyMask Room Air Oxygen Flow Rate 0.5 10/25/22 07:00 Temperature 97 F L Pulse Rate [Left A pical] 89 Pulse Rate [Right Pulse Oximeter] 89 Pulse Rate [Right Radial] 89 Respiratory Rate 20 Blood Pressure [Ri ght Arm] 153/72 H Pulse Oximetry 93 Oxygen Delivery Me thod Room Air Oxygen Flow Rate DS: Data Data Completed and Pending Labs on day of discharge: Labs from last 24 hours 10/25/22 04:55 WBC 3.69 L RBC 4.52 Hgb 15.2 Hct 48.9 MCV 108 H MCH 34 MCHC 31 L Plt Count 101 L VBG pH 7.386 VBG pCO2 64 H* VBG pO2 29.2 VBG HCO3 38 H Sodium 143 Potassium 3.5 L Chloride 101 Carbon Dioxide 36 H BUN 5 L Creatinine 0.5 Estimated Creat Clear 95.82 Estimated GFR 108 Glucose 86 Calcium 8.8 Preliminary micro results at discharge 10/22/22 10:15 Blood Culture - Preliminary Blood NO GROWTH AFTER 72 HOURS Discharge Plan Discharge Disposition: [facility] Date of Admission: 10/22/22 17:22 Attending Provider on Discharge: Nancy Hickman Primary Care Provider: Provider,Not a Local Discharge Medications: New amoxicillin-pot clavulanate 875-125 mg Tablet 1 tab PO BIDWM Qty: 14 0RF fentanyl 25 mcg/hr patch 72 hour 1 patch transdermal Q72H Qty: 10 0RF oxycodone 5 mg tablet 2.5 - 5 mg PO Q8H PRN (Reason: pain) Qty: 30 0RF Rx Instructions: limit three tabs in 24 hours as patient is on a Fentanyl Duragesic Patch Continued allopurinol 300 mg tablet 300 mg PO DAILY furosemide 40 mg tablet 40 mg PO DAILY sennosides [senna] 8.6 mg tablet 8.6 - 17.2 mg PO BID Rx Instructions: 1 TAB IN AM, 2 TABS AT HS omeprazole 40 mg capsule,delayed release(DR/EC) 40 mg PO DAILY acetaminophen 500 mg tablet 1,000 mg PO TID levothyroxine 75 mcg tablet 75 mcg PO DAILY levetiracetam 250 mg tablet 250 mg PO HS Rx Instructions: 1250MG TOTAL AT HS escitalopram oxalate 20 mg tablet 20 mg PO DAILY levetiracetam 1,000 mg tablet 1,000 mg PO BID Eliquis 5 mg tablet 5 mg PO BID gabapentin 400 mg capsule 800 mg PO TID nystatin 100,000 unit/gram cream 1 applic topical BID divalproex 125 mg capsule, delayed rel sprinkle 500 - 625 mg PO TID Rx Instructions: 500MG AT 0700, 625MG @1400 AND 2000 carboxymethylcellulose sodium [Lubricant Eye Drops] 0.5 % drops 1 drp ophthalmic (eye) TID quetiapine 100 mg tablet 100 mg PO TID hydrocortisone 1 % cream 1 applic topical BID PRN bisacodyl 10 mg suppository 10 mg DC BID PRN Discontinued oxycodone 10 mg tablet 10 mg PO TID Rx Instructions: PLUS Q4H PRN Discharge Orders: Discharge Order (Routine); Ordered 10/25/22 Ordered By: Nancy Hickman Activity Level: Activity as Tolerated Discharge Diet: Regular Dysphagia Food: Level 4- Pureed Dysphagia Liquid: Level 3- Moderately Thick (Honey) Follow Up Appointments: [facility] [Outside] - 10/26/22 (Pt has appt at 0730 on 10/26 for a sedated dental cleaning) [facility] [Outside] (Patient being discharged to [facility].) Discharge Comments: 1. Keep IV in for access at [facility] tomorrow for dental cleaning (will be sedated) 2. Finish 1 week of Augmentin for pneumonia Admit to: SNF Discharge Potential: Poor Length of Stay: >90 days Can use facility standing orders?: Yes Code Status: DNR/DNI Rehab Potential: Poor Oxygen: No Urinary Catheter: No Orders are good >30 days: Yes
--- NOTE | 2022-10-25 12:29 | PC.NURSE ---
d/c'ed via [facility] non-urgent EMS transfer at 1213PM to prior living situation @ [facility].
== END 2022-10-25 12:13 | DRG 177 ==
LOC: ED 12:42 → MEDSURG 13:21
PROVIDERS: Family Medicine; Admitting Provider Family Medicine; Emergency Provider Emergency Medicine; Visit Provider Family Medicine
DX: J69.0 Pneumonitis due to inhalation of food and vomit (principal); J96.01 Acute respiratory failure with hypoxia; J96.02 Acute respiratory failure with hypercapnia; G37.3 Acute transverse myelitis in demyelinating disease of central nervous system; G40.812 Lennox-Gastaut syndrome, not intractable, without status epilepticus; F84.0 Autistic disorder; F11.20 Opioid dependence, uncomplicated; G89.29 Other chronic pain; K02.9 Dental caries, unspecified; E66.01 Morbid (severe) obesity due to excess calories; K21.9 Gastro-esophageal reflux disease without esophagitis; R41.82 Altered mental status, unspecified; M50.10 Cervical disc disorder with radiculopathy, unspecified cervical region; M47.22 Other spondylosis with radiculopathy, cervical region; G40.909 Epilepsy, unspecified, not intractable, without status epilepticus; E03.1 Congenital hypothyroidism without goiter; R26.81 Unsteadiness on feet; R62.50 Unspecified lack of expected normal physiological development in childhood; E87.70 Fluid overload, unspecified; F32.A Depression, unspecified; M10.9 Gout, unspecified; Z86.718 Personal history of other venous thrombosis and embolism; Z86.711 Personal history of pulmonary embolism; Z79.01 Long term (current) use of anticoagulants; Z68.35 Body mass index [BMI] 35.0-35.9, adult
CPT/HCPCS: 36415; 51798; 70487; 71045; 71260; 80048; 80053; 80076; 80164; 80165; 80177; 81001; 82330; 82803; 83605; 83690; 83735; 83880; 84145; 84484; 85025; 85027; 86140; 87040; 87081; 87631; 93005; 94640; 94761; 99281; 99285; A9270; C9113; J0456; J1940; J1953; J2060; J2310; J2543; J3360; J3370; J7030; J7050; Q9967

== ENCOUNTER 2022-10-25 12:08 | Outpatient (CLI) | payer MEDICAID, SELFPAY | END 2022-10-25 12:09 | disposition home or self-care (01) | LOC: AMB 10-29 09:39 | PROVIDERS: Visit Provider Family Medicine | DX: Z99.3 Dependence on wheelchair (principal) | CPT/HCPCS: A0425; A0428 ==

== ENCOUNTER 2022-10-30 02:33 | Outpatient (CLI) | payer MEDICAID, SELFPAY | END 2022-10-30 02:34 | disposition home or self-care (01) | LOC: AMB 10-31 14:58 | PROVIDERS: Visit Provider Student in an Organized Health Care Education/Training Program | DX: R06.09 Other forms of dyspnea (principal) | CPT/HCPCS: A0425; A0428; A0429 ==

== ENCOUNTER 2022-10-30 02:56 | Observation (INO) | payer MEDICAID, SELFPAY ==
[2022-10-30] VITALS (7 sets, daily range): BP systolic 114–122; BP diastolic 73–96; PULSE 91–100; RESP 10–20; TEMP 36.4–36.9; O2SAT 85–97
--- NOTE | 2022-10-30 03:02 | CRLHL7_ITS ---
For Patients: As a result of the Century Cures Act, medical imaging exams and procedure reports are released immediately into your electronic medical record. You may view this report before your referring provider. If you have questions, please contact your health care provider. INDICATION: Hypoxia, possible aspiration TECHNIQUE: Chest 1 views. COMPARISON: October 23, 2022 FINDINGS: Heart size within normal limits. Persistent left retrocardiac airspace opacity and trace left greater than right pleural effusions. No visualized pneumothorax. Low lung volumes. Spinal hardware partially visualized. IMPRESSION: Persistent left retrocardiac airspace opacity which may represent atelectasis and/or pneumonia/aspiration, and trace left greater than right pleural effusions. Dictated by Tomas Ybarra MD @ 10/30/2022 4:41:23 AM (Electronically Signed)
--- NOTE | 2022-10-30 03:07 | ED.GENADULT ---
HPI - General Adult General Time Seen by Provider: 03:07 Date Seen: 10/30/22 Chief complaint: Unspecified Complaint, Adult Stated complaint: low sats Time Seen by Provider: 10/30/22 02:58 Source: EMS Mode of arrival: EMS History of Present Illness HPI narrative: Patient is a 57-year-old female history of aspiration pneumonia, Horacio-Gastaut syndrome, seizures with no seizures in several years presenting to emergency department for hypoxia. She is brought in by EMS. They state the patient was at her snf and was looking cyanotic and later spot check which showed her oxygen was in the 50s. Unclear if this was an accurate reading per EMS arrived it states she appeared cyanotic and they placed her on 4 L of oxygen. Patient has a history of aspiration pneumonia and there was concern she may have aspirated. She has not had seizures in several years. Patient does developmental delay and has difficulty answering questions appropriately. Of note the patient was here 1 week ago and discharged 5 days ago from the hospital for similar symptoms. The thought she might have possibly had a seizure at that time but they are not sure. Related Data Home Medications Medication Instructions Recorded Confirmed acetaminophen 500 mg tablet 1,000 mg PO TID 10/22/22 10/22/22 allopurinol 300 mg tablet 300 mg PO DAILY 10/22/22 10/22/22 apixaban 5 mg tablet (Eliquis) 5 mg PO BID 10/22/22 10/22/22 bisacodyl 10 mg rectal suppository 10 mg VT BID PRN 10/22/22 10/22/22 carboxymethylcellulose sodium 0.5 1 drp ophthalmic (eye) TID 10/22/22 10/22/22 % eye drops (Lubricant Eye Drops) divalproex 125 mg capsule,delayed 500 - 625 mg PO TID 10/22/22 10/22/22 release sprinkle escitalopram oxalate 20 mg tablet 20 mg PO DAILY 10/22/22 10/22/22 furosemide 40 mg tablet 40 mg PO DAILY 10/22/22 10/22/22 gabapentin 400 mg capsule 800 mg PO TID 10/22/22 10/22/22 hydrocortisone 1 % topical cream 1 applic topical BID PRN 10/22/22 10/22/22 levetiracetam 1,000 mg tablet 1,000 mg PO BID 10/22/22 10/22/22 levetiracetam 250 mg tablet 250 mg PO HS 10/22/22 10/22/22 levothyroxine 75 mcg tablet 75 mcg PO DAILY 10/22/22 10/22/22 nystatin 100,000 unit/gram topical 1 applic topical BID 10/22/22 10/22/22 cream omeprazole 40 mg capsule,delayed 40 mg PO DAILY 10/22/22 10/22/22 release quetiapine 100 mg tablet 100 mg PO TID 10/22/22 10/22/22 sennosides 8.6 mg tablet (senna) 8.6 - 17.2 mg PO BID 10/22/22 10/22/22 Previous Rx's Medication Instructions Recorded amoxicillin 875 mg-potassium 1 tab PO BIDWM #14 tabs 10/25/22 clavulanate 125 mg tablet fentanyl 25 mcg/hr transdermal 1 patch transdermal Q72H #10 10/25/22 patch patches oxycodone 5 mg tablet 2.5 - 5 mg (0.5 - 1 x 5 mg) PO Q8H 10/25/22 PRN pain #30 tabs Allergies Allergy/AdvReac Type Severity Reaction Status Date / Time phenytoin [From Dilantin] Allergy Unknown Verified 10/24/22 20:02 pseudoephedrine Allergy Unknown Verified 10/24/22 20:02 Review of Systems Narrative: Limited due to the patient's baseline mental status [facility] Medical History (Updated 10/30/22 @ 05:49 by Nelson Vo DO) Chronic pain ?G89.29 - Other chronic pain (ICD-10) Cervical radiculopathy due to degenerative joint disease of spine ?M47.22 - Other spondylosis with radiculopathy, cervical region (ICD-10) Transverse myelitis ?G37.3 - Acute transverse myelitis in demyelinating disease of central nervous system (ICD-10) Horacio-Gastaut syndrome ?G40.812 - [place]-Gastaut syndrome, not intractable, without status epilepticus (ICD-10) Seizure disorder ?G40.909 - Epilepsy, unspecified, not intractable, without status epilepticus (ICD-10) Congenital hypothyroidism ?E03.1 - Congenital hypothyroidism without goiter (ICD-10) Developmental delay with autism spectrum disorder and gait instability ?R62.50 - Unspecified lack of expected normal physiological development in childhood (ICD-10) ?F84.0 - Autistic disorder (ICD-10) ?R26.81 - Unsteadiness on feet (ICD-10) Surgical History (Updated 10/22/22 @ 14:42 by Nancy Hickman MD) Status post tracheostomy ?Z93.0 - Tracheostomy status (ICD-10) H/O spinal fusion ?Z98.1 - Arthrodesis status (ICD-10) Social History (Updated 10/22/22 @ 14:28 by Nancy Hickman MD) Narrative: Has lived in group homes since graduation from high school. Mother Joann, is very involved. Currently she lives at [facility]. [facility]. No smoking. Not sexually active. No alcohol. Loves Kahlil and all cartoons. What is your current living situation?: I presently have a place to live Problems where you live: unable to answer Problems where you live details: n/a In the past 12 months, utilities in danger of being shut off: unable to answer In the past 12 mos, have been you worried that your food would run out before you had money to buy more?: unable to answer In the past 12 mos, the food you bought just didn't last and you didn't have money to buy more?: unable to answer Highest level of school completed/degree received: high school graduate Smoking Status: Never smoker How often do you have a drink containing alcohol: never AUDIT-C Alcohol total score: 0 Non-prescribed substance use: denies use Caffeine: No How often does anyone, including family, friends and others, physically hurt you: unable to answer How often does anyone, including family, friends and others, insult or talk down to you: unable to answer How often does anyone, including family, friends and others, threaten you with harm: unable to answer How often does anyone, including family, friends and others, scream or curse at you: unable to answer Do you think of yourself as: don't know Gender Identity: female service: No Exam Narrative: Exam Narrative: Const: Well-nourished, Well-developed, in mild distress Eyes: PERRL, no conjunctival injection, and symmetrical lids ENMT: Atraumatic external nose and ears. Moist mucous membranes. Neck: Symmetric, trachea midline, No thyromegaly. CVS: RRR, No murmurs or gallops. Peripheral pulses 2+ and equal in all extremities RESP: Unlabored respiratory effort. Clear to auscultation bilaterally. GI: Nontender/Nondistended, No rebound or guarding. MSK:Extremities w/o deformity, Normal Active ROM Skin: Warm, Dry. No rashes or lesions. Neuro: Normal Muscle tone, No focal neurological deficits. Psych: Awake, Alert. Const: Vital Signs, click to edit/add: Vital Signs - 24 hr 10/30/22 03:00 Temperature 98.4 F Pulse Rate [Left P ulse Oximeter] 93 Respiratory Rate 18 Blood Pressure [Le ft Upper Arm] 114/96 H Pulse Oximetry 95 Oxygen Delivery Me thod Room Air Course Vital Signs Vital signs: Initial Vital Signs Temperature 98.4 F 10/30/22 03:00 Temperature Source Temporal Artery Scan 10/30/22 03:00 Pulse Rate 93 10/30/22 03:00 Respiratory Rate 18 10/30/22 03:00 Blood Pressure 114/96 H 10/30/22 03:00 Blood Pressure Mean 102 10/30/22 03:00 Blood Pressure Position Sitting 10/30/22 03:00 Pulse Oximetry 95 10/30/22 03:00 Oxygen Delivery Method Room Air 10/30/22 03:00 Vital Signs Temperature 98.4 F 10/30/22 03:00 Pulse Rate 93 10/30/22 03:00 Respiratory Rate 18 10/30/22 03:00 Blood Pressure 114/96 H 10/30/22 03:00 Pulse Oximetry 95 10/30/22 03:00 Oxygen Delivery Method Room Air 10/30/22 03:00 Temperature 98.4 F 10/30/22 03:00 Pulse Rate 93 10/30/22 03:00 Respiratory Rate 18 10/30/22 03:00 Blood Pressure 114/96 H 10/30/22 03:00 Pulse Oximetry 95 10/30/22 03:00 Oxygen Delivery Method Room Air 10/30/22 03:00 Medical Decision Making MDM Narrative Medical decision making narrative: Patient is a 57 year female presented emergency department for hypoxia and concern for aspiration pneumonia. She has a history of developmental delay and lives in a snf. She is a DNR/DNI. Ms. States she appears cyanotic when they arrive per EMS. She was placed on 4 L nasal cannula has been satting 94% with otherwise stable vital signs. With a history will do a chest x-ray, CBC, CMP, troponin, BNP, magnesium, COVID/flu/RSV. She has no recent surgeries, cancer or unilateral leg swelling and pulmonary embolism was unlikely at this time. Pneumonia is on the differential at this time less likely is a pneumothorax. No wheezing heard in clear breath sounds shows COPD is unlikely. I did initially order an ABG bed a very her part labeled patient is uncooperative and at this time I do not believe the ABG is absolutely necessary and would just cause the patient's more discomfort. Patient's lab work returns showing no concerning abnormalities.. Troponin is less than 0.01. BNP is only 206. Electrolytes are non concerning. White blood cell count is within normal limits no clear sign of infection. Chest x-ray returned showing a persistent atelectasis versus aspiration/pneumonia. Is hard to say if this is new compared to previous chest x-rays since they appear so similar and are only 1 week apart. At this time and not believe is necessary start antibiotics on her. COVID/flu/RSV are all negative. She does not meet any other criteria for SIRS other than slight tachycardia at 93. We did get an ABG later on when patient was calm down and showed she had a respiratory acidosis. Her CO2 partial pressure was 89. Previous ABGs in [facility] shows she is usually in the mid 60s so this is elevated for her. [facility] Data Labs: Lab Results 10/30/22 10/30/22 10/30/22 Range/Units 03:45 03:55 05:20 WBC 9.78 (4.50-11.00) K/uL RBC 3.36 L (4.00-5.20) m/uL Hgb 11.4 L (12.0-16.0) gm/dL Hct 37.3 (33.0-51.0) % MCV 111 H (80-100) fL MCH 34 (26-34) pg MCHC 31 L (32-36) gm/dL RDW Coeff of Mike 13.4 (11.5-15.5) % Plt Count 158 (140-440) K/uL Neut % (Auto) 37.6 L (42.0-72.0) % Lymph % (Auto) 51.3 H (20-44) % [place] % (Auto) 7.5 (0.0-11.0) % Eos % (Auto) 1.8 (0.0-7.0) % Baso % (Auto) 0.3 (0.0-3.0) % Neut # (Auto) 3.70 (1.7-7.0) K/uL Lymph # (Auto) 5.00 H (0.90-2.90) K/uL [place] # (Auto) 0.70 (0.00-0.90) K/UL Eos # (Auto) 0.18 (0.00-0.50) K/uL Baso # (Auto) 0.03 (0.00-0.30) K/uL Abs Immat Gran (auto) 0.15 (0.00-0.30) K/uL Imm/Tot Granulo (auto) 1.5 % ABG pH 7.28 L (7.35-7.45) ABG pCO2 89 H* (35-45) mmHG ABG pO2 76.4 L (80-105) mmHG ABG HCO3 42 H (21-28) mmol/L ABG Total CO2 40 H (21-30) mmol/l ABG O2 Saturation 94 (92-100) % ABG Base Excess 12.4 H (-3.0-3.0) mmol/L Carboxyhemoglobin 1.6 (0.0-5.0) % Sodium 141 (135-149) mmol/L Potassium 4.3 (3.6-5.1) mmol/L Chloride 93 L (96-114) mmol/L Carbon Dioxide 40 H (20-32) mmol/L BUN 7 (7-30) mg/dL Creatinine 0.6 (0.5-1.5) mg/dL Estimated GFR 103 ml/min Glucose 91 (60-115) mg/dL Calcium 8.7 (8.4-10.6) mg/dL Magnesium 2.0 (1.5-2.6) mg/dL Total Bilirubin 0.3 (0.1-1.5) mg/dL AST 22 (12-35) U/L ALT 12 (4-35) U/L Alkaline Phosphatase 68 (40-150) U/L Troponin I < 0.01 L (0.01-0.04) ng/mL NT-Pro-B Natriuret Pep 206 pg/mL Total Protein 7.1 (6.0-8.3) g/dL Albumin 3.6 (3.3-5.0) g/dL SARS-CoV-2 (PCR) Negative SARS-CoV-2 (Negative) Influenza Type A (PCR) Negative PCR FLU A (Negative) Influenza Type B (PCR) Negative PCR FLU B (Negative) RSV (PCR) Negative PCR RSV (Negative) ECG Data Attestation: I personally reviewed and interpreted this ECG as follows: (Normal sinus rhythm rate 92 beats per minute, normal axis, normal intervals other than NC year leads seen is show a possible prolonged QT wall lateral and anterior leads show normal appearing QT. No ST or T-wave abnormalities appears similar to previous EKGs other than a mild QT prolongation) Prior ECG tracings: available for review (10/22/2022) Discharge Plan Discharge Clinical Impression: Hypercarbia Patient Disposition: Admitted As Observation Condition: Stable Prescriptions: No Action allopurinol 300 mg tablet 300 mg PO DAILY furosemide 40 mg tablet 40 mg PO DAILY sennosides [senna] 8.6 mg tablet 8.6 - 17.2 mg PO BID Rx Instructions: 1 TAB IN AM, 2 TABS AT HS omeprazole 40 mg capsule,delayed release(DR/EC) 40 mg PO DAILY acetaminophen 500 mg tablet 1,000 mg PO TID levothyroxine 75 mcg tablet 75 mcg PO DAILY levetiracetam 250 mg tablet 250 mg PO HS Rx Instructions: 1250MG TOTAL AT HS escitalopram oxalate 20 mg tablet 20 mg PO DAILY levetiracetam 1,000 mg tablet 1,000 mg PO BID Eliquis 5 mg tablet 5 mg PO BID gabapentin 400 mg capsule 800 mg PO TID nystatin 100,000 unit/gram cream 1 applic topical BID divalproex 125 mg capsule, delayed rel sprinkle 500 - 625 mg PO TID Rx Instructions: 500MG AT 0700, 625MG @1400 AND 2000 carboxymethylcellulose sodium [Lubricant Eye Drops] 0.5 % drops 1 drp ophthalmic (eye) TID quetiapine 100 mg tablet 100 mg PO TID hydrocortisone 1 % cream 1 applic topical BID PRN bisacodyl 10 mg suppository 10 mg VT BID PRN amoxicillin-pot clavulanate 875-125 mg Tablet 1 tab PO BIDWM Qty: 14 0RF fentanyl 25 mcg/hr patch 72 hour 1 patch transdermal Q72H Qty: 10 0RF oxycodone 5 mg tablet 2.5 - 5 mg PO Q8H PRN (Reason: pain) Qty: 30 0RF Rx Instructions: limit three tabs in 24 hours as patient is on a Fentanyl Duragesic Patch Follow Up/Referrals: Provider,Not a Local [Primary Care Provider] -
[2022-10-30] MEDS: LORazepam 2 MG/ML inj 0.5 MG IVP (03:49)
[2022-10-30 04:01] LABS: Basophils Absolute Auto 0.03 K/uL (0.00-0.30); Basophils Percent Auto 0.3 % (0.0-3.0); Eosinophils Absolute Auto 0.18 K/uL (0.00-0.50); Eosinophils Percent Auto 1.8 % (0.0-7.0); Hematocrit 37.3 % (33.0-51.0); Hemoglobin* 11.4 gm/dL (12.0-16.0); Immature Granulocytes Abs Auto 0.15 K/uL (0.00-0.30); Immature Granulocytes Pct Auto 1.5 %; Lymphocytes Percent Auto 51.3 % (20-44); Mean Corpuscular HGB Conc 31 gm/dL (32-36); Mean Corpuscular Hemoglobin 34 pg (26-34); Mean Corpuscular Volume 111 fL (80-100); Monocytes Percent Auto 7.5 % (0.0-11.0); Neutrophils Percent Auto 37.6 % (42.0-72.0); Platelet Count* 158 K/uL (140-440); RDW Coefficient of Variation % 13.4 % (11.5-15.5); Red Blood Count 3.36 m/uL (4.00-5.20); White Blood Count* 9.78 K/uL (4.50-11.00)
[2022-10-30 04:02] LABS: Slide Review Reflex No
[2022-10-30 04:14] LABS: Albumin* 3.6 g/dL (3.3-5.0); Chloride* 93 mmol/L (96-114)
[2022-10-30 04:15] LABS: Potassium* 4.3 mmol/L (3.6-5.1); Sodium* 141 mmol/L (135-149)
[2022-10-30 04:17] LABS: Alkaline Phosphatase* 68 U/L (40-150); Aspartate Amino Transferase* 22 U/L (12-35); Bilirubin Total* 0.3 mg/dL (0.1-1.5); Creatinine* 0.6 mg/dL (0.5-1.5); Estimated Glomerular Filt Rate 103 ml/min; Total Protein* 7.1 g/dL (6.0-8.3)
[2022-10-30 04:18] LABS: Alanine Aminotransferase* 12 U/L (4-35); Blood Urea Nitrogen* 7 mg/dL (7-30); Calcium* 8.7 mg/dL (8.4-10.6); Glucose* 91 mg/dL (60-115)
[2022-10-30 04:24] LABS: Carbon Dioxide* 40 mmol/L (20-32)
[2022-10-30 04:31] LABS: NT Pro B Type NatriureticPept* 206 pg/mL; Troponin I* < 0.01 ng/mL (0.01-0.04)
[2022-10-30 04:39] LABS: PCR FLU A Negative PCR FLU A (Negative); PCR FLU B Negative PCR FLU B (Negative); PCR RSV Negative PCR RSV (Negative)
[2022-10-30 04:44] LABS: SARS PCR* Negative SARS-CoV-2 (Negative)
[2022-10-30 05:36] LABS: Base Excess ABG 12.4 mmol/L (-3.0-3.0); Carboxyhemoglobin* 1.6 % (0.0-5.0); HCO3 ABG 42 mmol/L (21-28); Oxygen Saturation ABG 94 % (92-100); PO2 ABG 76.4 mmHG (80-105); TCO2 ABG 40 mmol/l (21-30); pH ABG 7.28 (7.35-7.45)
[2022-10-30 05:39] LABS: ABG PCO2 89 mmHG (35-45)
--- NOTE | 2022-10-30 06:07 | ED.NURSE ---
report to ms [facility]
[2022-10-30] MEDS: OMEPRAZOLE 20 MG CAPSULE DR 40 MG PO (11:00)
[2022-10-30] MEDS: LEVOTHYROXINE 75 MCG TABLET PO (11:00)
[2022-10-30] MEDS: AMOXICILLIN/CLAVULANATE 875 mg/125 mg TABLET PO (11:00)
[2022-10-30] MEDS: SENNOSIDES 1 TAB TABLET PO (11:01)
[2022-10-30] MEDS: allopurinoL 300 MG TABLET PO (11:01)
[2022-10-30] MEDS: APIXABAN 5 MG TABLET PO (11:01)
[2022-10-30] MEDS: ACETAMINOPHEN 500 MG TABLET 1000 MG PO (11:01)
[2022-10-30] MEDS: FUROSEMIDE 40 MG TABLET PO (11:03)
[2022-10-30] MEDS: levETIRAcetam 500 MG TABLET 1000 MG PO (11:03)
[2022-10-30] MEDS: QUETIAPINE 100 MG TABLET PO (11:04)
[2022-10-30] MEDS: ESCITALOPRAM 10 MG TABLET 20 MG PO (11:04)
[2022-10-30] MEDS: DIVALPROEX SODIUM 125 MG CAP.DR.SPR 500 MG PO (11:04)
--- NOTE | 2022-10-30 11:56 | NUTR.NU ---
RDN for RN nutrition referral for skin risk. Pt was fully assessed on 10/23, one week ago. Was discharged and now returns with hypercapnea. One meal recorded at this time at 100%. No significant weight change. No further nutrition intervention needed at this time.
--- NOTE | 2022-10-30 13:02 | PC.NURSE ---
PATIENT DISCHARGED TO [address] [place] [address] VIA EMS @ 1300, IV REMOVED, ALL BELONGINGS SENT WITH PATIENT.
--- NOTE | 2022-10-30 13:04 | PC.NURSE ---
Shift Summary : Patient difficult to wake this morning, at baseline will usually yell to communicate discomfort with staff. O2 sats >90% on 2L/NC with RR 10-12, dropped to RA, an hour later patient was awake and requesting breakfast. Ate 100% of meal with assistance of staff. T&R q2h, incont products managed by staff. Staff anticipate most needs. Called [facility] and given update to nurse there this morning on doctors instructions to leave patient on room air at [facility], and that patient will be discharging later today. Patient taking medication crushed in pudding.
--- NOTE | 2022-10-30 16:26 | P.IMHP_ITS ---
Hospitalist- H&P: HPI History of Present Illness Time Seen by Provider: 08:00 Date Seen: 10/30/22 Chief complaint: low sats Narrative: Whit Garcia is a 57 year old woman with congenital developmental delays, autism spectrum disorder, seizure disorder, Horacio-Gastaut syndrome, obstructive sleep apnea, who was recently discharged from the hospital after an aspiration event. During hospital stay she required respiratory support with high-flow humidified room air an effort to help her lower her partial pressure of CO2 due to CO2 retention, acute on chronic. During this hospitalization it was clearly determined that even minimal oxygen support caused her to have acute on chronic hypercapnic respiratory failure. Discussions were undertaken relative to treatment options, including ventilatory support, BiPAP support, CPAP support, high-flow humidified room air support. The patient's mother, the patient's power of collections attorney for health, made it very clear that she wanted only comfort focus measures. At the time she was willing to consider high-flow humidified room air support. This was undertaken. Patient did not tolerate this well. Eventually it was stopped and patient was discharged back to long-term facility. Additionally during this hospitalization discussions were held relative to hospice support. Her mother indicated she would need to consider that but certainly wanted only comfort focus measures hereafter and decline any additional disease directed diagnostic or interventional efforts. This morning patient was found to be hypoxemic and cyanotic with room air oxygen saturations in the 50s. She was asleep. EMS applied 4 L of oxygen per minute via nasal cannula. Brought to the emergency department. Thorough workup remarkable mainly for the fact that her arterial blood gas pH was 7.28, pCO2 89, PO2 76, bicarb 42, CO2 40. Repeat chest x-ray did not demonstrate worsening of infiltrate previously seen. No additional abnormalities. Other labs unremarkable. Patient was transferred to the hospital under observation. When I assess her this morning she is sound asleep. She has oxygen on at 0.5 liter/minute via nasal cannula saturating around 90-95%. Concurrently her respirations are only 10 breaths per minute with obvious apnea. I removed the oxygen from the patient. Her saturations drop into the 70s and 80s and respirations increase to 16 breaths per minute. She still rather sleepy. We attempt to draw a venous blood gas and patient awakens and makes it very clear that she does not want to have any blood draws. Her resting room air oxygen saturations improved to the mid 90s and respiratory rate remained 16-20 breaths per minute. She informs us that she is hungry. Denies any other discomforts. We are able to have a relatively meaningful discussion with her. She makes it very clear she does not want have any blood drawn. Review of Systems Status of ROS: Reports: 10 or more systems reviewed and unremarkable except as noted in History and below [facility] Medical History (Updated 10/30/22 @ 16:41 by Francisco Vora MD) Obstructive sleep apnea ?G47.33 - Obstructive sleep apnea (adult) (pediatric) (ICD-10) Chronic hypoxemic respiratory failure ?J96.11 - Chronic respiratory failure with hypoxia (ICD-10) Chronic hypercapnic respiratory failure ?J96.12 - Chronic respiratory failure with hypercapnia (ICD-10) Chronic pain ?G89.29 - Other chronic pain (ICD-10) Cervical radiculopathy due to degenerative joint disease of spine ?M47.22 - Other spondylosis with radiculopathy, cervical region (ICD-10) Transverse myelitis ?G37.3 - Acute transverse myelitis in demyelinating disease of central nervous system (ICD-10) Horacio-Gastaut syndrome ?G40.812 - Horacio-Gastaut syndrome, not intractable, without status epilepticus (ICD-10) Seizure disorder ?G40.909 - Epilepsy, unspecified, not intractable, without status epilepticus (ICD-10) Congenital hypothyroidism ?E03.1 - Congenital hypothyroidism without goiter (ICD-10) Developmental delay with autism spectrum disorder and gait instability ?R62.50 - Unspecified lack of expected normal physiological development in childhood (ICD-10) ?F84.0 - Autistic disorder (ICD-10) ?R26.81 - Unsteadiness on feet (ICD-10) Surgical History Status post tracheostomy ?Z93.0 - Tracheostomy status (ICD-10) H/O spinal fusion ?Z98.1 - Arthrodesis status (ICD-10) Social History Narrative: Has lived in group homes since graduation from high school. Mother Joann, is very involved. Currently she lives at [facility]. Recently had lived at the [facility]. No smoking. Not sexually active. No alcohol. Loves [place] and all cartoons. What is your current living situation?: I presently have a place to live Problems where you live: unable to answer Problems where you live details: n/a In the past 12 months, utilities in danger of being shut off: unable to answer In the past 12 mos, have been you worried that your food would run out before you had money to buy more?: unable to answer In the past 12 mos, the food you bought just didn't last and you didn't have money to buy more?: unable to answer Highest level of school completed/degree received: high school graduate Smoking Status: Never smoker How often do you have a drink containing alcohol: never AUDIT-C Alcohol total score: 0 Non-prescribed substance use: denies use Caffeine: No How often does anyone, including family, friends and others, physically hurt you : unable to answer How often does anyone, including family, friends and others, insult or talk down to you: unable to answer How often does anyone, including family, friends and others, threaten you with harm: unable to answer How often does anyone, including family, friends and others, scream or curse at you: unable to answer Do you think of yourself as: don't know Gender Identity: female service: No Meds Home Medications and Allergies Home Medications Medication Instructions Recorded Confirmed Type acetaminophen 500 mg tablet 1,000 mg PO TID 10/22/22 10/30/22 History allopurinol 300 mg tablet 300 mg PO DAILY 10/22/22 10/30/22 History apixaban 5 mg tablet (Eliquis) 5 mg PO BID 10/22/22 10/30/22 History bisacodyl 10 mg rectal suppository 10 mg CA BID PRN 10/22/22 10/30/22 History carboxymethylcellulose sodium 0.5 1 drp ophthalmic (eye) TID 10/22/22 10/30/22 History % eye drops (Lubricant Eye Drops) divalproex 125 mg capsule,delayed 500 - 625 mg PO TID 10/22/22 10/30/22 History release sprinkle escitalopram oxalate 20 mg tablet 20 mg PO DAILY 10/22/22 10/30/22 History furosemide 40 mg tablet 40 mg PO DAILY 10/22/22 10/30/22 History gabapentin 400 mg capsule 800 mg PO TID 10/22/22 10/30/22 History hydrocortisone 1 % topical cream 1 applic topical BID PRN 10/22/22 10/30/22 History levetiracetam 1,000 mg tablet 1,000 mg PO BID 10/22/22 10/30/22 History levetiracetam 250 mg tablet 250 mg PO HS 10/22/22 10/30/22 History levothyroxine 75 mcg tablet 75 mcg PO DAILY 10/22/22 10/30/22 History nystatin 100,000 unit/gram topical 1 applic topical BID 10/22/22 10/30/22 History cream omeprazole 40 mg capsule,delayed 40 mg PO DAILY 10/22/22 10/30/22 History release quetiapine 100 mg tablet 100 mg PO TID 10/22/22 10/30/22 History sennosides 8.6 mg tablet (senna) 8.6 - 17.2 mg PO BID 10/22/22 10/30/22 History Home Medication Comments: Unchanged since last discharge from the hospital few days ago. Allergies Allergy/AdvReac Type Severity Reaction Status Date / Time phenytoin [From Dilantin] Allergy Unknown Verified 10/24/22 20:02 pseudoephedrine Allergy Unknown Verified 10/24/22 20:02 Exam Narrative: Exam Narrative: I examine her in the hospital room. Initially not arousable. After I remove oxygen supplementation she gradually becomes more alert. Once attempting to draw venous blood gas she totally awakens and makes it very clear she does not want have any blood drawn whatsoever. Chronic dermatitis under her lower lip and on her chin. Lungs with scattered rhonchi that clear with coughing. No other wheezing or rales. Heart tones regular rhythm. Abdomen with active bowel sounds soft. Extremities without edema. Skin is warm, dry, intact. Const: Vital Signs, click to edit/add: Vital Signs - 24 hr 10/30/22 03:00 10/30/22 04:30 10/30/22 06:20 Temperature 98.4 F 98.4 F Pulse Rate [Left P ulse Oximeter] 93 91 91 Respiratory Rate 18 18 16 Blood Pressure [Le ft Arm] Blood Pressure [Le ft Upper Arm] 114/96 H 122/84 114/73 Pulse Oximetry 95 96 97 Oxygen Delivery Me thod Room Air Nasal Cannula Nasal Cannula Oxygen Flow Rate 2 2 10/30/22 06:44 10/30/22 07:35 10/30/22 07:57 Temperature 97.5 F L Pulse Rate [Left P ulse Oximeter] 100 93 Respiratory Rate 20 12 16 Blood Pressure [Le ft Arm] 122/74 Blood Pressure [Le ft Upper Arm] Pulse Oximetry 94 91 91 Oxygen Delivery Me thod Nasal Cannula Nasal Cannula Nasal Cannula Oxygen Flow Rate 2 0.5 0.5 10/30/22 08:22 Temperature Pulse Rate [Left P ulse Oximeter] 98 Respiratory Rate 10 L Blood Pressure [Le ft Arm] Blood Pressure [Le ft Upper Arm] Pulse Oximetry 85 L Oxygen Delivery Me thod Room Air Oxygen Flow Rate Hospitalist - H&P: Result Labs Labs: Short CBC 10/30/22 Range/Units 03:45 WBC 9.78 (4.50-11.00) K/uL Hgb 11.4 L (12.0-16.0) gm/dL Hct 37.3 (33.0-51.0) % Plt Count 158 (140-440) K/uL BMP 10/30/22 03:45 Sodium 141 Potassium 4.3 Chloride 93 L Carbon Dioxide 40 H BUN 7 Creatinine 0.6 Glucose 91 Calcium 8.7 Cardiac Enzymes 10/30/22 Range/Units 03:45 Troponin I < 0.01 L (0.01-0.04) ng/mL Liver Function 10/30/22 Range/Units 03:45 Total Bilirubin 0.3 (0.1-1.5) mg/dL AST 22 (12-35) U/L ALT 12 (4-35) U/L Alkaline Phosphatase 68 (40-150) U/L Albumin 3.6 (3.3-5.0) g/dL Assessment and Plan Assessment and plan (1) Acute on chronic respiratory failure with hypoxia and hypercapnia: Status: Acute (2) Chronic hypercapnic respiratory failure: Status: Acute (3) Chronic hypoxemic respiratory failure: Status: Acute (4) Obstructive sleep apnea: Status: Acute (5) Palliative care status: Problem comment: DNR/DNI resuscitation status Status: Acute (6) History of aspiration pneumonia: Status: Acute (7) Chronic pain: Problem comment: Previous to admission, patient takes 10 mg of oxycodone t.i.d. with p.r.n. 5 mg dosing. The mother was telling me that she has done better when on transdermal fentanyl and she was in discussions with this with the new [facility] provider fentanyl duragesic started on 10/22/22 acute on chronic pain is being investigated as well. Whit has been complaining of right upper dental/jaw pain for months. there has been attempts at a sedated cleaning appointment/eval and is finally scheduled for 10/26/22 Status: Acute (8) Opioid dependence: Problem comment: fentanyl duragesic started 10/22 prn oxy. reduced dose to 2.5-5. avoid if possible; narcan x 1 (0.2mg IV) given am of 10/23 i wonder if pain in gumline is actually more the source than the chronic neck pain. Status: Acute (9) Morbid obesity: Status: Acute (10) Seizure disorder: Problem comment: Continue dosing with her home regimen - on/off able to cooperate with PO meds. keppra and valproic acid IV if needed. Status: Acute (11) Developmental delay with autism spectrum disorder and gait instability: Problem comment: Noted Status: Acute (12) Congenital hypothyroidism: Problem comment: Continue dosing with her Synthroid regimen. Status: Acute (13) Horacio-Gastaut syndrome: Problem comment: Noted. Potentially having seizures, absent/partial complex. We gave the Keppra IV in the ED. I have ordered her Depakote and Keppra per usual dosing regimen. May need bedside neurology with [facility] if we feel she is still having seizures later today. I've substituted IV doses when not awake enough to take oral. holding evening dose of keppra on 10/23 given random level so high upon presentation yesterday (>80) in the ED on 10/22 Status: Acute Plan 1. Had a long conversation with her mother, Joann, via the telephone. 2. Joann is the patient's power of collections attorney for health. Joann makes it very clear that she wants is to focus on patient comfort only. She tells me multiple times at the patient has DNR DNI resuscitation status. She does not want us to proceed with any additional disease directed diagnostic or interventional efforts. She understands that the patient has chronic hypercapnic and hypoxic respiratory failure. She understands that even a minimal amount of oxygen supplementation could cause the patient's hypercapnic respiratory failure to worsen. She explains that she does not want us to proceed with any oxygen supp ort given this complex condition that her daughter has with hypercapnic respiratory failure. She does not wish to proceed with any additional testing or interventions in regard to the hypercapnic respiratory failure. She will consider hospice intervention hereafter. She indicates that if her daughter were to pass away in her sleep that this would be a blessing for her daughter and for her given how much her daughter has suffered in the past. 3. We contact the [address] [place] [address] where the patient resides and update them on the patient's improvement off of oxygen. We informed them in no u ncertain terms that the patient's mother does not want the patient to receive any oxygen hereafter even if her saturations are low. We explained to them that the patient has chronic hypercapnic respiratory failure and oxygen supplementation causes an acute on chronic hypercapnic respiratory failure. Patient's mother does not wish to pursue additional disease directed diagnostic or interventional efforts in this regard. Patient's mother wants is to focus on keeping her daughter comfortable only. Patient's mother will consider possible hospice support. Patient does meet eligibility criteria for hospice services. 4. Patient is discharged back to [facility]. Continue with medication support as previously on.
== END 2022-10-30 13:00 ==
LOC: ED 05:49 → MEDSURG 06:18
PROVIDERS: Admitting Provider Hospitalist; Emergency Provider Student in an Organized Health Care Education/Training Program; Visit Provider Hospitalist
DX: J96.21 Acute and chronic respiratory failure with hypoxia (principal); J96.22 Acute and chronic respiratory failure with hypercapnia; J96.12 Chronic respiratory failure with hypercapnia; J96.11 Chronic respiratory failure with hypoxia; R23.0 Cyanosis; Z51.5 Encounter for palliative care; G47.33 Obstructive sleep apnea (adult) (pediatric); K21.9 Gastro-esophageal reflux disease without esophagitis; G89.29 Other chronic pain; F11.20 Opioid dependence, uncomplicated; E66.01 Morbid (severe) obesity due to excess calories; G40.909 Epilepsy, unspecified, not intractable, without status epilepticus; R62.50 Unspecified lack of expected normal physiological development in childhood; F84.0 Autistic disorder; R26.81 Unsteadiness on feet; E03.1 Congenital hypothyroidism without goiter; G40.812 Lennox-Gastaut syndrome, not intractable, without status epilepticus; L30.9 Dermatitis, unspecified; E87.29 Other acidosis; Z79.01 Long term (current) use of anticoagulants; Z87.01 Personal history of pneumonia (recurrent); Z93.0 Tracheostomy status; Z98.1 Arthrodesis status; Z66 Do not resuscitate
CPT/HCPCS: 36415; 36600; 71045; 80053; 82803; 83735; 83880; 84484; 85025; 85379; 87631; 93005; 96374; 99283; 99285; A9270; G0378; J2060

== ENCOUNTER 2022-10-30 12:47 | Outpatient (CLI) | payer MEDICAID, MEDICARE, SELFPAY | END 2022-10-30 12:48 | disposition home or self-care (01) | LOC: AMB 11-12 04:40 | PROVIDERS: Visit Provider Emergency Medicine | DX: R09.02 Hypoxemia (principal) | CPT/HCPCS: A0425; A0428 ==